=== PATIENT | female | born 1945 | race Caucasian/White ===

== ENCOUNTER 2022-07-11 09:49 | Outpatient (CLI) | payer MEDICARE, OTHER, SELFPAY ==
--- NOTE | 2022-07-11 10:15 | CRLHL7_ITS ---
For Patients: As a result of the Century Cures Act, medical imaging exams and procedure reports are released immediately into your electronic medical record. You may view this report before your referring provider. If you have questions, please contact your health care provider. Indication: Right hip pain Comparison: None. Procedure : Informed consent was obtained. The site was marked. Time-out was performed. The skin of the right hip was cleansed with ChloraPrep. A sterile drape was placed. 8 cc of 1 percent lidocaine was administered for superficial anesthesia. Subsequently a 22 gauge spinal needle was introduced into the right hip joint under intermittent fluoroscopic guidance. Injection of 7 cc 1 percent lidocaine and 2 cc Depo-Medrol 40 milligram/cc then performed. The needle was removed and hemostasis achieved with direct pressure. A dressing was placed. The patient tolerated the procedure well without immediate complication. Total fluoroscopy time 18 seconds. Impression: Successful fluoroscopically guided right hip injection with 80 milligrams of Depo-Medrol. Dictated by Javier Bass MD @ 07/11/2022 11:19:24 AM (Electronically Signed)
== END 2022-07-11 09:50 | disposition home or self-care (01) ==
PROVIDERS: PCP Family Medicine; Visit Provider Orthopaedic Surgery Sports Medicine
DX: M16.11 Unilateral primary osteoarthritis, right hip (principal); M25.551 Pain in right hip
CPT/HCPCS: 20610; 77002; J1030; Q9966

== ENCOUNTER 2022-10-25 09:04 | Outpatient (CLI) | payer MEDICARE, OTHER, SELFPAY | END 2022-10-25 09:05 | disposition home or self-care (01) | PROVIDERS: PCP Family Medicine; Visit Provider Orthopaedic Surgery Sports Medicine | DX: Z01.818 Encounter for other preprocedural examination (principal) | CPT/HCPCS: 36415; 86850; 86900; 86901 ==

== ENCOUNTER 2022-10-27 07:00 | Day surgery (SDC) | payer MEDICARE, OTHER, SELFPAY ==
[2022-10-27] VITALS (49 sets, daily range): BP systolic 72–145; BP diastolic 49–90; PULSE 49–80; RESP 11–16; TEMP 36–37; O2SAT 82–100; BMI 25.2
--- NOTE | 2022-10-27 07:44 | CRLHL7_ITS ---
For Patients: As a result of the Cures Act, medical imaging exams and procedure reports are released immediately into your electronic medical record. You may view this report before your referring provider. If you have questions, please contact your health care provider. Indication: POST OP RIGHT VÍCTOR Technique: AP hip centered pelvis and lateral view right hip Findings/Impression: Hardware from a right total hip arthroplasty is in satisfactory position. Bone alignment is normal. No sign of acute fracture. Postop changes are within normal limits. Dictated by Javier Bass MD @ 10/27/2022 11:15:11 AM (Electronically Signed)
[2022-10-27] MEDS: LACTATED RINGERS 1000 ML 1,000 ML 100 ML IV ×2 (07:50→09:39)
[2022-10-27] MEDS: SODIUM CHLORIDE 0.9 % (FLUSH) 10 ML SYRINGE IVF (07:50)
[2022-10-27] MEDS: ACETAMINOPHEN 500 MG TABLET 1000 MG PO ×3 (07:50→22:23)
[2022-10-27] MEDS: CELECOXIB 200 MG CAPSULE PO ×2 (07:50→20:38)
[2022-10-27] MEDS: OXYCODONE (CR) 10 MG TAB.ER.12H PO (07:50)
[2022-10-27] MEDS: fentaNYL 100 MCG/2 ML inj IVP (08:22)
[2022-10-27] MEDS: MIDAZOLAM HCL 1 MG/ML inj IVP (08:22)
--- NOTE | 2022-10-27 08:29 | SUR.PREOP ---
TIME?OUT:?08 PT/RN/MDA?VERIFICATION?OF?SURGICAL?SITE,?PROCEDURE,?AND?CONSENT OBTAINED?PRIOR?TO?INVASIVE?PROCEDURE.
--- NOTE | 2022-10-27 08:30 | CRLHL7_ITS ---
For Patients: As a result of the Cures Act, medical imaging exams and procedure reports are released immediately into your electronic medical record. You may view this report before your referring provider. If you have questions, please contact your health care provider. Indication: Hip replacement surgery Technique: AP hip fluoroscopic image. Fluoroscopy time 27.5 seconds. Findings/Impression: Hardware from a right total hip arthroplasty is in satisfactory position. Dictated by Javier Bass MD @ 10/27/2022 10:49:44 AM (Electronically Signed)
[2022-10-27] MEDS: CEFAZOLIN 2 GM in 0.9 % SODIUM CHLORIDE Mini-bag 100 ML IVPB (09:00)
--- NOTE | 2022-10-27 09:49 | P.ORPRC_ITS ---
Procedure Note Date of procedure: 10/27/22 Procedure: PREOPERATIVE DIAGNOSIS: 1. Right hip osteoarthritis, severe, primary POSTOPERATIVE DIAGNOSIS: 1. Right hip osteoarthritis, severe, primary PROCEDURE: 1. Right total hip arthroplasty-anterior approach 2. 79450 - intraoperative fluoroscopy up to 1 hour. SURGEON: Spencer Piper MD. BOLTING MACHINE OPERATOR: Yasir Forte PA-C; PREET Burgess - Of note, a skilled payroll and benefits assistant was critical for this case to aid in patient positioning, tissue retraction, limb manipulation/positioning, and closure. ANESTHESIA: Spinal anesthetic EBL: 300 mL IMPLANTS: DePuy J&J uncemented total hip [place] cup size 52, hole eliminator, +4 neutral liner Actis stem, standard offset, size 6 +5 mm ceramic 36 mm head COMPLICATIONS: None evident INDICATIONS: The patient is a pleasant 77-year-old female who has experienced severe right hip pain and difficulty bearing weight. Workup included x-rays which revealed severe osteoarthrosis in the hip. Given the deformity, the dysfunction, and the pain, as well as the failure of nonoperative management, recommendation was made for surgery. FINDINGS: Full-thickness chondral loss throughout the femoral head. Femoral head/neck junction osteophytes. Large effusion. Significant synovitis. DESCRIPTION OF PROCEDURE: Following a thorough discussion of risks, benefits, and alternatives consent was obtained and the right hip was marked. The patient was brought to the operating room and placed supine on the operating table. Induction of anesthesia was undertaken. 2 g IV Ancef and 1 g tranexamic acid was administered within 1 hr of incision preoperatively. Proper time-out was performed identifying proper patient, site, procedure. The operative extremity was prepped and draped in the appropriate sterile fashion using ChloraPrep after the patient was positioned on the [place] table with head in neutral alignment and all bony prominences well padded. C-arm fluoroscopic imaging was utilized to confirm proper pelvis rotation and position, and to get true AP films of both the contralateral left, and the affected right hip. This is for comparison. A longitudinal incision was made starting approximately 1 cm distal to the ASIS, and 3-4 cm lateral. The incision was extended distally aiming toward the late ral border the patella. Sharp incision through skin and bovie cautery through the subcutaneous tissue allowed identification of the TFL fascia. This was sharply divided, and the fascia bluntly released from the muscle fibers as we dissected medial. Upon coming to the medial border, we were able to retract the TFL laterally, and penetrated the deeper fascia and identify the crossing circumflex vessels. These were ligated/cauterized. The rectus was elevated from the capsule, and retractors placed laterally and medially along the femoral neck to help with visualization of the capsule. We then performed an inverted T capsulotomy. The capsule was tagged for later repair. Retractors were placed inside the capsule. The femoral neck was visualized after releasing medially down to the lesser trochanter, along the saddle laterally, and up onto the acetabulum. The femoral neck cut was made in line with our preoperative templating. The head was removed in a single piece, and sized. We turned our attention to acetabular preparation. Initially, the labrum was resected from around the perimeter, the pulvinar was excised, allowing us to visualize the false wall. We started the reaming with a 43 mm reamer. This was medialized down to the true wall. We then enlarged our reamers sequentially up to one size less than the selected cup size. We trialed at the same size and found it to have an excellent fit. The selected cup was then opened, inserted, and impacted in line with the goal of 40? of abduction, and 20-25? of anteversion. This was confirmed on C-arm fluoroscopic imaging to be in the appropriate/goal position. Once the cup was placed we placed a hole eliminator and a liner consistent with preop planning. Attention was turned to the femoral preparation. The limb was extended, externally rotated, and adducted. The posteromedial capsule was released, as retractors were placed allowing excellent access to the proximal femur. Initially a box car checker was followed by canal finder followed by various broaches. We broached sequentially up to the size noted above, found it to have excellent rotational control, and trialing various heads and necks, revealed that appropriate neck offset, and the above noted head size provided the greatest stability, and scientologist of length, and offset. C-arm fluoroscopic imaging confirmed position of the stem, as well as leg lengths, which were compared with the pre procedure all fluoroscopic images. Trial implants were removed, the real femoral stem inserted, as was the appropriate head. After reducing, the leg was placed through range of motion and stability was confirmed anterior, posterior, and lateral. A 3 min Betadine soak was then performed, and thorough irrigation with normal saline followed. Closure of the capsule was performed with #1 PDS. Bleeding was confirmed to be controlled at this stage, and the TFL fascia was closed with #0 strata fix. Subcutaneous, and subcuticular closure was performed with 2-0 Vicryl and 4-0 Monocryl, respectively. Dressings were applied, and the patient was awoken from anesthesia and transferred the PACU in stable condition. A skilled payroll and benefits assistant was critical for this case to aid in patient positioning, tissue retraction, acetabular and proximal femoral exposure, limb manipulation/positioning, dislocation/relocation, patient safety, and closure. PLAN: 1. Weight bear as tolerated operative extremity. 2. 23 hr perioperative antibiotics. 3. Ice. 4. PT/OT consults for ambulation assistance/mobility education. 5. Social work consult for discharge planning. 6. DVT prophylaxis with at SCDs, Emery Hose, and Xarelto x5 days followed by aspirin for a total of 1 month..
--- NOTE | 2022-10-27 10:33 | W.ANESCHARGE ---
Anesthesia Charges Start Date/Time Anesthesia Start Date: 10/27/22 Anesthesia Start Time: 08:32 Stop Date/Time Anesthesia Stop Date: 10/27/22 Anesthesia Stop Time: 10:25 Summary Emergency: No Extremes of Age: Over 70-CPT 36160
[2022-10-27] MEDS: LACTATED RINGERS 1000 ML 1,000 ML 75 ML IV (11:24)
--- NOTE | 2022-10-27 11:43 | W.ANESCHARGE ---
Anesthesia Charges Start Date/Time Anesthesia Start Date: 10/27/22 Anesthesia Start Time: 08:32 Stop Date/Time Anesthesia Stop Date: 10/27/22 Anesthesia Stop Time: 10:25 Summary Emergency: No Extremes of Age: Over 69-CPT 23363
--- NOTE | 2022-10-27 11:45 | W.PM.NB ---
Nerve Block Nerve Block Time Seen by Provider: 08:28 Date Seen: 10/27/22 Type of block requested by surgeon for post-operative analgesia: FLOYD/LFCN Side: right Time out performed: Yes Verification of patient name: Yes Verification of date of : Yes Site marking: site marked Name of person performing procedure: Shoaib Continuous monitoring Was continuous monitoring of O2 sat, B/P, campus monitor, recorded every 15 minutes?: Yes Procedure Checklist: sterile prep, needles and gloves Ultrasound guided. Images saved: Yes Medications given in 5ml increments after negative aspiration: Ropivicaine %: 0.5 mL: 30 Needle gauge: 20 Decadron (mg): 10 Precedex (mcg): 25 Patient tolerated procedure well: Yes Additional comments: Needle noted below psoas tendon needle noted adjacent to LFCN Block Charges Block Charge (with Pro Fee): Other Periph Nerve Block Use of Ultrasound Machine for Block: Yes- US Guidance/pain block
--- NOTE | 2022-10-27 12:02 | PC.NURSE ---
Patient returned from OR at 11am. Complained of bilateral jaw pain. Report was given that patient had a spinal and not general anesthesia. Patient started to complain of left hand tinglings at 1140. EKG was obtained and MD notified. Stat troponin is being drawn.
[2022-10-27 12:38] LABS: Troponin I* < 0.01 ng/mL (0.01-0.04)
--- NOTE | 2022-10-27 12:43 | P.IMCN_ITS ---
Date of Consult Consult date: 10/27/22 Primary Care Provider: Ольга Gamble, Consult Narrative Reason for consult: Medical management of comorbidities Narrative: Georgette Kaminski is a 77 year old female who presented to the hospital today for an elective right VÍCTOR. There were no surgical or anesthetic complications noted during procedure. Postoperatively, patient return to the floor and had some intermittent neck pain and left hand numbness. She had no chest pain or difficulty breathing. Symptoms resolved spontaneously. Immediately obtained troponin and EKG. Troponin within normal limits, EKG exhibits low voltage QRS, sinus bradycardia, left anterior fascicular block. 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 Known normal cardiac structure and function per TTE and cardiac MRI, according to outside records. Patient's H&P reviewed, PCP is Dr. Gamble at [facility]. Past medical history significant for: SVT, PVCs, essential hypertension, emphysema, anxiety, seasonal allergies, history of lumbar fusion. 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 She lives alone. Nonsmoker (quit smoking in 1972), no alcohol use. States that daughter Daphnie Spaers would be medical decision maker if needed. Review of Systems Status of ROS: Reports: 10 or more systems reviewed and unremarkable except as noted in History and below [facility] Medical History (Updated 10/27/22 @ 13:41 by Rosaura Harper MD) Arthritis Arthritis of carpometacarpal (CMC) joint of left thumb Back injury Bursitis Colitis Emphysema lung Gastritis Gastroenteritis and colitis, viral Heart palpitations Hypertension IBS (irritable bowel syndrome) Left carpal navicular fracture Panlobular emphysema Unstable angina Surgical History (Updated 10/27/22 @ 13:40 by Rosaura Harper MD) History of back surgery History of cardiac radiofrequency ablation (~2009) History of colon resection History of total left hip replacement (03/10/07) S/P right rotator cuff repair (01/02/10) Family History (Updated 10/14/22 @ 10:45 by Ashley Moore RN) Mother Asthma CHF (congestive heart failure) Brother Asthma Father Myocardial infarction Sister Colitis Social History (Updated 06/10/22 @ 14:04 by Albina Hamm ([facility]), [facility]) Smoking Status: Former smoker What tobacco products do you use: cigarettes Smoking quit date/years: >15 years ago Do you use any of these nicotine containing products: None Second hand tobacco smoke exposure: No How often do you have a drink containing alcohol: never AUDIT-C Alcohol total score: 0 Non-prescribed substance use: denies use Caffeine: No service: No Meds Home Medications and Allergies Home Medications Medication Instructions Recorded Confirmed Type albuterol sulfate 90 mcg/actuation 1 puff inhalation QID PRN 06/10/22 10/27/22 History aerosol inhaler hydrochlorothiazide 25 mg tablet 25 mg PO DAILY 06/10/22 10/27/22 History ipratropium 0.5 mg-albuterol 3 mg 3 ml inhalation QID PRN 06/10/22 10/27/22 History (2.5 mg base)/3 mL nebulization soln lorazepam 0.5 mg tablet 0.5 mg PO Q6H PRN 06/10/22 10/27/22 History metoprolol succinate 50 mg 50 mg PO DAILY 06/10/22 10/27/22 History tablet,extended release 24 hr montelukast 10 mg tablet 10 mg PO HS 06/10/22 10/27/22 History acetaminophen 500 mg tablet 500 - 1,000 mg PO TID PRN 10/23/22 10/27/22 History fluticasone 250 mcg-salmeterol 50 1 inh inhalation BID 10/23/22 10/27/22 History mcg/dose blistr powdr for inhalation (Advair Diskus) loperamide 2 mg capsule (Imodium 2 mg PO Q6H PRN 10/23/22 10/27/22 History A-D) Allergies Allergy/AdvReac Type Severity Reaction Status Date / Time fluoxetine [From Prozac] Allergy Unknown Verified 10/27/22 07:25 codeine AdvReac Nausea Verified 10/27/22 07:25 Exam Narrative: Exam Narrative: GEN: Alert and oriented, laying comfortably in bed. When I see patient she has no further headache, no further neck pain, no left sided paresthesia HEENT: EOMIs bilaterally, no scleral icterus CV: RRR, No concerning murmurs, rubs, or gallops R: LCTA bilaterally without concerning wheezing, rales, or rhonchi Skin: No concerning skin lesions or rashes on exposed skin Neuro: Nonfocal, no resting tremor, normal and symmetric sensation of upper extremities Psych: Appropriate Const: Vital Signs, click to edit/add: Vital Signs - 24 hr 10/27/22 07:39 10/27/22 08:15 10/27/22 08:20 Temperature 98.0 F Pulse Rate 61 62 58 L Respiratory Rate 16 16 16 Blood Pressure 145/89 H 123/90 H 123/81 Pulse Oximetry 94 97 97 Oxygen Delivery Me thod Room Air Nasal Cannula Nasal Cannula Oxygen Flow Rate 2 2 10/27/22 08:25 10/27/22 10:20 10/27/22 10:25 Temperature 97.1 F L Pulse Rate 59 L 51 L 53 L Respiratory Rate 16 11 L 12 Blood Pressure 121/75 91/61 83/49 L Pulse Oximetry 98 99 100 Oxygen Delivery Me thod Nasal Cannula OxyMask Oxygen Flow Rate 2 6 10/27/22 10:30 10/27/22 10:35 10/27/22 10:40 Temperature Pulse Rate 51 L 53 L 51 L Respiratory Rate 16 16 12 Blood Pressure 81/63 L 72/54 L 94/64 Pulse Oximetry 98 94 93 Oxygen Delivery Me thod Room Air Oxygen Flow Rate 10/27/22 10:45 10/27/22 10:50 10/27/22 11:04 Temperature 97.1 F L 96.8 F L Pulse Rate 52 L 50 L 51 L Respiratory Rate 12 12 16 Blood Pressure 95/67 102/62 Pulse Oximetry 94 94 93 Oxygen Delivery Me thod Oxygen Flow Rate 10/27/22 11:05 10/27/22 11:08 10/27/22 11:12 Temperature 96.8 F L Pulse Rate 52 L 56 L 52 L Respiratory Rate 16 Blood Pressure 82/50 L 86/53 L 113/69 Pulse Oximetry 93 82 L 98 Oxygen Delivery Me thod Oxygen Flow Rate 10/27/22 11:15 10/27/22 11:17 10/27/22 11:30 Temperature Pulse Rate 52 L 53 L 53 L Respiratory Rate Blood Pressure 105/64 Pulse Oximetry 93 92 93 Oxygen Delivery Me thod Oxygen Flow Rate 10/27/22 11:32 10/27/22 11:45 10/27/22 11:47 Temperature 98.6 F Pulse Rate 52 L 53 L 56 L Respiratory Rate 16 Blood Pressure 101/74 123/72 Pulse Oximetry 92 91 89 Oxygen Delivery Me thod Oxygen Flow Rate 10/27/22 12:00 10/27/22 12:02 Temperature Pulse Rate 55 L 51 L Respiratory Rate Blood Pressure 125/67 Pulse Oximetry 94 96 Oxygen Delivery Me thod Oxygen Flow Rate Labs Labs: Cardiac Enzymes 10/27/22 Range/Units 12:00 Troponin I < 0.01 L (0.01-0.04) ng/mL Assessment and Plan Assessment and plan (1) S/P hip replacement: Problem comment: - RIGHTDr. Piper 10/27/22 Status: Acute (2) Anxiety: Problem comment: - mild, well managed as an outpatient Status: Acute (3) Panlobular emphysema: Problem comment: - on Advair as an outpatient Status: Acute (4) Hypertension: Problem comment: - well controlled on HCTZ and Metoprolol Status: Acute (5) Cardiac arrhythmia: Problem comment: - history of SVT, post ablation remotely - known history of PVCs - on Metoprolol Status: Acute Plan - follow on telemetry given history - pain management and prophylaxis per Orthopedic Surgery - anticipate routine postoperative course
[2022-10-27] MEDS: CEFAZOLIN 1 GM in 0.9 % SODIUM CHLORIDE Mini-bag 100 ML IVPB ×2 (13:08→22:23)
[2022-10-27] MEDS: ONDANSETRON 2 MG/ML inj 4 MG IVP ×2 (13:16→17:50)
[2022-10-27] MEDS: METOCLOPRAMIDE HCL 5 MG/ML INJ 10 MG IVP (15:01)
--- NOTE | 2022-10-27 15:56 | PC.NURSE ---
End of shift note: Patient is a post op today of Right Total Hip Arthroplasty. PIV is intact and LR is running at 75ml/hr. Patient has denied pain since coming back. Spinal has worn off and patient has been able to get up to chair with PT. Attempted to void without success. Has had a lot of nausea and has vomited X3 since coming back from OR. Zofran and Reglan have been given. Aromatherapy patch has been applied. Patient appears very anxious about the nausea and vomiting. Reassured her it was likely from the medications from surgery. Patient was worried she would be contagious when she goes to her sisters. Incision is clean dry and intact. Good pulses and cap refill. Has feeling in both legs but her butt is somewhat numb. TEDs and Plexipulses are on. BP was initially low when she returned from PACU. Put in Trendelenburg position and this was helpful. BP has normalized. Patient did experience jaw pain and tingling down her left arm when she came back from PACU. EKG and Troponin were complete and within normal limits. Tele was started X24 hours. Sinus bradycardia with occasional PVCs. Patient is alert and oriented but did ask several questions about nausea after being answered. Patient plans to DC to [facility] when ready.
[2022-10-27] MEDS: 0.9 % SODIUM CHLORIDE 1000 ml 1,000 ML 500 ML IV (20:00)
[2022-10-27] MEDS: SENNOSIDES 1 TAB TABLET 2 TAB PO (20:38)
[2022-10-27] MEDS: 0.9 % SODIUM CHLORIDE 500 ML 500 ML 250 ML IV (23:29)
--- NOTE | 2022-10-27 23:32 | PC.NURSE ---
End of Shift: Patient pleasant and cooperative. Afebrile. Dressing to right hip C/D/I. CMS intact. Rating pain up to 7/10 with activity but denies need for PRN pain medication. Up to chair and bathroom with 1 assist, walker and gait belt. C/o nausea at the start of the shift and PRN Zofran given x1. Able to tolerate soup and toast by the end of the shift. No emesis. BP decreased to 85/56, MD updated and 1L NS bolus given. BP on recheck 96/57 and 94/52, MD updated and order for additional 500 mL bolus. Patient denies any lightheadedness or dizziness.
[2022-10-28 03:00] VITALS: BP 114/76; PULSE 77; RESP 16; TEMP 37; O2SAT 90
[2022-10-28] MEDS: ACETAMINOPHEN 500 MG TABLET 1000 MG PO (03:59)
[2022-10-28] MEDS: LACTATED RINGERS 1000 ML 1,000 ML 75 ML IV (03:59)
[2022-10-28 06:24] LABS: Hematocrit 28.7 % (33.0-51.0); Hemoglobin* 9.9 gm/dL (12.0-16.0); Immature Granulocytes Abs Auto 0.11 K/uL (0.00-0.30); Immature Granulocytes Pct Auto 1.3 %; Lymphocytes Percent Auto 8.4 % (20-44); Mean Corpuscular HGB Conc 35 gm/dL (32-36); Mean Corpuscular Hemoglobin 31 pg (26-34); Mean Corpuscular Volume 90 fL (80-100); Monocytes Percent Auto 6.6 % (0.0-11.0); Neutrophils Percent Auto 83.7 % (42.0-72.0); Platelet Count* 200 K/uL (140-440); RDW Coefficient of Variation % 12.6 % (11.5-15.5); Red Blood Count 3.18 m/uL (4.00-5.20); White Blood Count* 8.59 K/uL (4.50-11.00)
[2022-10-28] MEDS: CEFAZOLIN 1 GM in 0.9 % SODIUM CHLORIDE Mini-bag 100 ML IVPB (06:26)
[2022-10-28 06:34] LABS: Slide Review Reflex No
[2022-10-28 06:37] LABS: Potassium* 3.8 mmol/L (3.6-5.1); Sodium* 136 mmol/L (135-149)
[2022-10-28 06:40] LABS: Blood Urea Nitrogen* 25 mg/dL (7-30); Creatinine* 0.9 mg/dL (0.5-1.5); Est. Creatinine Clearance* 45.09; Estimated Glomerular Filt Rate 65 ml/min
[2022-10-28 07:00] VITALS: BP 95/54; PULSE 58; PULSE 60; RESP 16; TEMP 37.1; O2SAT 96
--- NOTE | 2022-10-28 07:03 | PC.NURSE ---
Pt alert and oriented x3. Afebrile. Pt reports 4/10 pain in right leg, scheduled Tylenol given. Pt denies chest pain, SOB, and N/V. Dressing on right hip?is CDI. Pt is up with A1 with gait belt and walker to bathroom.?Pt is tolerating regular diet. ?
[2022-10-28] MEDS: SENNOSIDES 1 TAB TABLET 2 TAB PO (08:33)
[2022-10-28] MEDS: CELECOXIB 200 MG CAPSULE PO (08:33)
[2022-10-28] MEDS: RIVAROXABAN 10 MG TABLET PO (08:33)
--- NOTE | 2022-10-28 10:20 | PC.NURSE ---
Discharge note: Pt. alert and oriented x4, up to chair for breakfast, denies N/V/SOB/Pain. Pt. tolerating reg. diet. Dressing to right hip C/D/I. IV to right wrist removed intact. Pt. belonging sheet signed, discharge instructions given and pt. verbalized understanding of instructions. Pt. discharged to home via wheelchair accompanied by sister, at 1010.
--- NOTE | 2022-10-28 12:01 | P.ORPN_ITS ---
Subjective Subjective Date Seen: 10/28/22 Principal diagnosis: Status postop day 1, right total hip arthroplasty - anterior approach Interval history: Patient reports doing well. No acute events over night. Pain managed with scheduled /PRN medications and ice. DVT prophylaxis rivaroxaban, bilateral knee high Emery stockings, and SCDs. Denies fevers, chills, aches, N/V, CP, SOB/MCCAIN, tachycardia, or lightheadedness. She plans to stay with her sister at [facility], [place]. Ortho Exam Narrative Exam Narrative: -Patient appears comfortable in liner; no apparent acute distress. Working with physical therapy. -Alert and oriented times 3 -Operative hip swollen; soft tissues supple; no obvious erythema. Warmth appropriate -Surgical dressing clean, dry, intact; no obvious drainage, no erythematous streaking peripheral to the bandage -Bilateral calves soft and supple; no significant swelling, edema, tenderness, erythema, discoloration, warmth, or palpable cords -2+ DP/PT pulses, intact dermatomes and myotomes distally (5/5 strength). No numbness about the lateral femoral cutaneous nerve distribution. Const Vital Signs, click to edit/add: Vital Signs - 24 hr 10/27/22 12:02 10/27/22 12:03 10/27/22 12:15 Temperature Pulse Rate 51 L 50 L 53 L Pulse Rate [Right Pulse Oximeter] Respiratory Rate Blood Pressure 125/67 Blood Pressure [Left Arm] Pulse Oximetry 96 92 90 Oxygen Delivery Method 10/27/22 12:30 10/27/22 12:32 10/27/22 12:45 Temperature 97.2 F L Pulse Rate 50 L 52 L 49 L Pulse Rate [Right Pulse Oximeter] Respiratory Rate 16 Blood Pressure 124/71 Blood Pressure [Left Arm] Pulse Oximetry 95 95 88 Oxygen Delivery Method 10/27/22 13:00 10/27/22 13:15 10/27/22 13:30 Temperature 97.0 F L Pulse Rate 54 L 80 54 L Pulse Rate [Right Pulse Oximeter] Respiratory Rate 16 Blood Pressure Blood Pressure [Left Arm] Pulse Oximetry 95 96 96 Oxygen Delivery Method 10/27/22 13:38 10/27/22 14:02 10/27/22 14:17 Temperature Pulse Rate 53 L 52 L Pulse Rate [Right Pulse Oximeter] Respiratory Rate Blood Pressure 128/83 105/90 H Blood Pressure [Left Arm] Pulse Oximetry 96 91 Oxygen Delivery Method 10/27/22 14:30 10/27/22 14:45 10/27/22 15:05 Temperature 97.0 F L Pulse Rate 55 L 59 L 61 Pulse Rate [Right Pulse Oximeter] Respiratory Rate 16 Blood Pressure Blood Pressure [Left Arm] Pulse Oximetry 92 96 95 Oxygen Delivery Method 10/27/22 15:23 10/27/22 15:12 10/27/22 15:15 Temperature 97.0 F L Pulse Rate 57 L 58 L 54 L Pulse Rate [Right Pulse Oximeter] Respiratory Rate 16 Blood Pressure 121/61 Blood Pressure [Left Arm] Pulse Oximetry 93 92 Oxygen Delivery Method 10/27/22 15:30 10/27/22 15:45 10/27/22 16:38 Temperature 97.2 F L Pulse Rate 49 L 50 L Pulse Rate [Right Pulse Oximeter] 53 L Respiratory Rate 16 Blood Pressure Blood Pressure [Left Arm] 99/56 L Pulse Oximetry 92 93 93 Oxygen Delivery Method Room Air 10/27/22 17:00 10/27/22 19:00 10/27/22 21:35 Temperature 97.9 F 98.0 F Pulse Rate Pulse Rate [Right Pulse Oximeter] 66 69 Respiratory Rate 16 16 Blood Pressure Blood Pressure [Left Arm] 115/66 85/56 L 96/57 L Pulse Oximetry 94 94 Oxygen Delivery Method Room Air Room Air 10/27/22 22:30 10/27/22 12:05 10/27/22 23:00 Temperature 98.2 F Pulse Rate 62 Pulse Rate [Right Pulse Oximeter] 59 L 61 Respiratory Rate 14 Blood Pressure Blood Pressure [Left Arm] 94/52 L 102/49 L Pulse Oximetry 92 Oxygen Delivery Method Room Air 10/28/22 03:00 10/28/22 07:00 10/28/22 07:00 Temperature 98.6 F Pulse Rate 60 Pulse Rate [Right Pulse Oximeter] 77 58 L Respiratory Rate 16 16 Blood Pressure Blood Pressure [Left Arm] 114/76 Pulse Oximetry 90 Oxygen Delivery Method Room Air 10/28/22 07:00 Temperature 98.8 F Pulse Rate Pulse Rate [Right Pulse Oximeter] 58 L Respiratory Rate 16 Blood Pressure Blood Pressure [Left Arm] 95/54 L Pulse Oximetry 96 Oxygen Delivery Method Room Air Assessment and Plan Assessment and plan (1) S/P hip replacement: Problem details: - RIGHT, Dr. Piper 10/27/22 Status: Inactive (2) Anxiety: Problem details: - mild, well managed as an outpatient Status: Acute (3) Panlobular emphysema: Problem details: - on Advair as an outpatient Status: Acute (4) Hypertension: Problem details: - well controlled on HCTZ and Metoprolol Status: Acute (5) Cardiac arrhythmia: Problem details: - history of SVT, post ablation remotely - known history of PVCs - on Metoprolol Status: Acute Plan - Complete 23 hour perioperative antibiotics. - PT/OT consult for education and assistance. - Social work consult for discharge planning - Prescribed analgesics as needed - DVT prophylaxis: Rivaroxaban, bilateral knee high Emery Hose stockings and SCDs - Anticipation is for discharge to home with sister today 10/28/2022 if the patient remains medically stable, pain is controlled, and they are safe with mobilization.
--- NOTE | 2022-10-28 12:03 | P.DS_ITS ---
DS: Providers Provider Date Seen: 10/28/22 Date of admission: Med/Surg Recovery 10/27/2022 Primary care physician: Ольга Gamble DO Consults: 10/27/22 11:01 Consult to Occupational Therapy [CONS] Routine Comment: Reason(s) for OT Consult:: ADLs Prior to Discharge Any Restrictions?:: No Restrictions Comment: Consult to Physical Therapy [CONS] Routine Comment: Ambulate in the saba today Reason(s) for PT Consult:: Evaluate and Treat Any Restrictions?:: No Restrictions Comment: Nursing Activity Consult to Physician [CONS] Routine Comment: Consulting Provider: Hospitalists Has provider been notified: No Consult to Sales Service Professional [CONS] Routine Comment: Reason for Consult:: Discharge Planning Needs Attending Physician on discharge: Spencer Piper MD Date of Discharge: 10/28/22 DS: Diagnosis Discharge Diagnosis (1) Status post total replacement of right hip: Status: Acute Problem details: VÍCTOR-AA (10/27/2022, Dr. Piper) DS: Summary Hospital Course Hospital Course: The patient has a history of right hip osteoarthritis, primary, severe. After appropriate preoperative evaluation, the patient underwent right total hip arthroplasty. Postoperatively given anticoagulation for deep vein thrombosis prophylaxis. They progressed to PT/OT and were felt ready and prepared for discharge to home with appropriate pain medication and anticoagulation medications. Status at Discharge Functional status at discharge: uses cane/walker Overall status at discharge: patient is progressing back to baseline Time Spent with Patient Time attestation: Total time spent providing and/or coordinating discharge services: Time spent: Less than 30 minutes Exam Const: Vital Signs, click to edit/add: Vital Signs - 24 hr 10/27/22 12:15 10/27/22 12:30 10/27/22 12:32 Temperature 97.2 F L Pulse Rate 53 L 50 L 52 L Pulse Rate [Right Pulse Oximeter] Respiratory Rate 16 Blood Pressure 124/71 Blood Pressure [Le ft Arm] Pulse Oximetry 90 95 95 Oxygen Delivery Me thod 10/27/22 12:45 10/27/22 13:00 10/27/22 13:15 Temperature 97.0 F L Pulse Rate 49 L 54 L 80 Pulse Rate [Right Pulse Oximeter] Respiratory Rate 16 Blood Pressure Blood Pressure [Le ft Arm] Pulse Oximetry 88 95 96 Oxygen Delivery Me thod 10/27/22 13:30 10/27/22 13:38 10/27/22 14:02 Temperature Pulse Rate 54 L 53 L Pulse Rate [Right Pulse Oximeter] Respiratory Rate Blood Pressure 128/83 105/90 H Blood Pressure [Le ft Arm] Pulse Oximetry 96 96 Oxygen Delivery Me od 10/27/22 14:17 10/27/22 14:30 10/27/22 14:45 Temperature Pulse Rate 52 L 55 L 59 L Pulse Rate [Right Pulse Oximeter] Respiratory Rate Blood Pressure Blood Pressure [Le ft Arm] Pulse Oximetry 91 92 96 [facility] 10/27[facility] 15:05 10/27/22 15:23 10/27/22 15:12 Temperature 97.0 F L 97.0 F L Pulse Rate 61 57 L 58 L Pulse Rate [Right Pulse Oximeter] Respiratory Rate 16 16 Blood Pressure 121/61 Blood Pressure [Le ft Arm] Pulse Oximetry 95 93 [facility] 10/27/22 15:15 10/27/22 15:30 10/27/22 15:45 Temperature Pulse Rate 54 L 49 L 50 L Pulse Rate [Right Pulse Oximeter] Respiratory Rate Blood Pressure Blood Pressure [Le ft Arm] Pulse Oximetry 92 92 93 [facility] 10/27/22 16:38 10/27/22 17:00 10/27/22 19:00 Temperature 97.2 F L 97.9 F 98.0 F Pulse Rate Pulse Rate [Right Pulse Oximeter] 53 L 66 69 Respiratory Rate 16 16 16 Blood Pressure Blood Pressure [Le ft Arm] 99/56 L 115/66 85/56 L Pulse Oximetry 93 94 94 Oxygen Delivery [facility] Room Air Room Air Room Air 10/27/22 21:35 10/27/22 22:30 10/27/22 12:05 Temperature 98.2 F Pulse Rate Pulse Rate [Right Pulse Oximeter] 59 L 61 Respiratory Rate 14 Blood Pressure Blood Pressure [Le ft Arm] 96/57 L 94/52 L 102/49 L Pulse Oximetry 92 [facility] 10/27/22 23:00 10/28/22 03:00 10/28/22 07:00 Temperature 98.6 F Pulse Rate 62 60 Pulse Rate [Right Pulse Oximeter] 77 Respiratory Rate 16 Blood Pressure Blood Pressure [Le ft Arm] 114/76 Pulse Oximetry 90 Oxygen Delivery Me thod Room Air 10/28/22 07:00 10/28/22 07:00 Temperature 98.8 F Pulse Rate Pulse Rate [Right Pulse Oximeter] 58 L 58 L Respiratory Rate 16 16 Blood Pressure Blood Pressure [Le ft Arm] 95/54 L Pulse Oximetry 96 Oxygen Delivery Me thod Room Air DS: Data Data Completed and Pending Labs on day of discharge: Labs from last 24 hours 10/28/22 10/28/22 10/27/22 05:47 05:47 12:00 WBC 8.59 RBC 3.18 L Hgb 9.9 L Hct 28.7 L MCV 90 MCH 31 MCHC 35 RDW Coeff of Virgil 12.6 Plt Count 200 Neut % (Auto) 83.7 H Lymph % (Auto) 8.4 L Aiken % (Auto) 6.6 Eos % (Auto) 0.0 Baso % (Auto) 0.0 Neut # (Auto) 7.20 H Lymph # (Auto) 0.70 L Aiken # (Auto) 0.60 Eos # (Auto) 0.00 Baso # (Auto) 0.00 Sodium 136 Potassium 3.8 BUN 25 Creatinine 0.9 Estimated Creat Clear 45.09 Estimated GFR 65 Troponin I < 0.01 L Discharge Plan Discharge Disposition: Home, Self-Care Discharging Surgeon: Spencer Piper Follow-Up Appointment: 1 week PO with JUMA Prescriptions: New sennosides-docusate sodium [Senna-S] 8.6-50 mg tablet 1 - 4 tab-cap PO BID PRN (Reason: constipation) Qty: 60 0RF Rx Instructions: Hold medication if experiencing loose stools. aspirin 81 mg tablet,delayed release (DR/EC) 81 mg PO BID Qty: 50 0RF Rx Instructions: Medication to help prevent blood clots postoperatively; take TWICE daily. oxycodone 5 mg tablet 2.5 - 5 mg PO Q4-6H MDD 6 PRN (Reason: pain) Qty: 42 0RF Rx Instructions: Take as needed for postop pain: 2.5mg mild pain, 5mg moderate-severe pain; we an as tolerated. rivaroxaban 10 mg tablet 10 mg PO DAILY Qty: 4 0RF Rx Instructions: Medication for deep vein clot prevention post surgery. Complete this medication before starting Aspirin. Continued acetaminophen 500 mg tablet 500 - 1,000 mg PO TID PRN No Action hydrochlorothiazide 25 mg tablet 25 mg PO DAILY metoprolol succinate 50 mg tablet extended release 24 hr 50 mg PO DAILY montelukast 10 mg tablet 10 mg PO HS albuterol sulfate 90 mcg/actuation HFA aerosol inhaler 1 puff inhalation QID PRN ipratropium-albuterol 0.5 mg-3 mg(2.5 mg base)/3 mL solution for nebulization 3 ml inhalation QID PRN lorazepam 0.5 mg tablet 0.5 mg PO Q6H PRN fluticasone propion-salmeterol [Advair Diskus] 250-50 mcg/dose blister with device 1 inh inhalation BID loperamide [Imodium A-D] 2 mg capsule 2 mg PO Q6H PRN Activity Level: Activity as Tolerated, Weight Bearing as Tolerated, Use Cane and Use Walker Activity Detail: Wound: ?Do not remove original dressing; we will remove this at first postop visit in 1 week. Only remove dressing if integrity is in question. ?No immersing wound in water; showering okay; light scrub with your hand and body soap, rinse, dab dry ?Sutures are under the skin, will dissolve; allow surgical glue to come off naturally; do not scrub the wound or apply ointments/lotions ?Call our office with any redness that streaks, excessive drainage from the wound, or wound gapping. Ice/Elevate: ?Ice as needed for swelling and discomfort (cryocuff or ice pack); elevate frequently above the heart ARELY socks: ?Wear for 1 month, remove for 1 hour 3 times per day ?These are frustrating to take on/off, but are important for blood clot prevent ion for 1 month after surgery Blood Clot Prevention (DVT): ?Medication: Rivaroxaban, and transition to 81 mg aspirin by mouth twice daily (total one month of protection). Driving: ?Do not drive while taking narcotic pain medication ?Anticipate 4-6 weeks no driving if operative leg is driving leg Dental: ?No elective dental work for 6 months post-op. If there is an urgent/emergent dental need, contact our office for an antibiotic prescription. Smoking/Alcohol: ?Do not smoke; do no drink alcohol especially when taking postoperative oral narcotic medication Seek Care from you Primary Care Provider if you experience the following issues in the postoperative phase and beyond: ?Bacterial infections such as: pneumonia, bacterial skin infection (cellulitis), UTI, high fever, chills unrelated to the operative body part - call your primary care physician urgently for treatment in hopes to protect your health and the metal implant. Referrals: ?PT, OT per patient preference - evaluate treat total hip arthroplasty protocol (gait training, ROM, ADLs) Follow up: ?Ortho surgeon follow-up in 6 weeks; repeat radiographs AP pelvis, cross-table lateral operative hip ?PA-C visit in 1 week *If there are any acute concerns regarding your surgery, please call our orthopedic clinic ([phone]) Discharge Diet: Regular Patient Instructions: Aspirin (By mouth), Oxycodone, Rapid Release (By mouth), Rivaroxaban (By mouth), Senna (By mouth), Surgical Site Infections (DC), Anterior Hip Replacement (DC) Follow-up: Ольга Gamble DO [Primary Care Provider] - Afshan Carolina PA-C [Physician Senior Mobile Web Developer] - 11/05/22 11:00 am (At the [facility] Call if you have any questions) Discharge Orders: Discharge Order (Routine); Ordered 10/28/22 Ordered By: Yasir Forte
== END 2022-10-28 10:10 | disposition home or self-care (01) ==
LOC: OR 07:01 → MEDSURG 07:03
PROVIDERS: Family Medicine; PCP Family Medicine; Visit Provider Orthopaedic Surgery Sports Medicine
PROC: (CPT 27130; principal; 2022-10-27 08:30)
DX: M16.11 Unilateral primary osteoarthritis, right hip (principal); M25.551 Pain in right hip; F41.9 Anxiety disorder, unspecified; J43.1 Panlobular emphysema; I10 Essential (primary) hypertension; M54.2 Cervicalgia; R20.0 Anesthesia of skin; R00.1 Bradycardia, unspecified; I44.4 Left anterior fascicular block
CPT/HCPCS: 27130; 01214; 36415; 51798; 64450; 73501; 76942; 82565; 84132; 84295; 84484; 84520; 85025; 86850; 86900; 86901; 93005; 97110; 97116; 97161; 97165; 97535; 99100; A9270; C1776; J0690; J1100; J2250; J2370; J2405; J2704; J2765; J2795; J3010; J3490; J7030; J7120

== ENCOUNTER 2022-11-24 09:00 | Outpatient (RCR) | payer MEDICARE, OTHER, SELFPAY ==
--- NOTE | 2022-10-20 13:45 | PT.OPEX ---
PT [place] Outpatient Eval PT [facility] Outpatient Eval Start: 10/20/22 09:06 Freq: Status: Active Protocol: Document 10/20/22 09:49 ENM (Rec: 10/20/22 12:49 ENM [id number]) E-signed By Gabriela Artis DPT Physical Therapy Outpatient Evaluation Insurance Information Recert Due Date 01/12/23 Insurance Name Medicare B Medical Diagnosis unilateral primary osteoarthritis, right hip presence of unspecified artificial hip joint Treating Diagnosis right hip pain, impaired gait, decreased hip ROM Referring MD Piper Subjective Subjective Patient presents to PT for pre -operative appointment prior to right total hip replacement DOS 10/27/22 to be performed by . She had her left hip replaced 15+ years ago. The right hip has been bothersome for a year or so. She had a cortisone injection to the groin that has helped a lot but pain is still present . Walking and performing daily activities are painful. Sitting to standing had been getting more difficult. She will be staying with her sister after the surgery as she lives alone. For additional information as to home set up see pre-op flowsheet. PMHx: respiratory problems, arthritis Pain Comments 05/07 Date of Surgery (If applicable) 10/27/22 Current Work Status Retired Objective Other/Pertinent Objective ROM L knee WNL R knee WNL L hip flexion + for pain with limited range performing heel slides L hip able to perform VAN without help or pain. R hip discomfort and needing to use arms to perform VAN position , 25% limited strength: hip flexors L 4/5 R 4-/5 knee extensors 4/5 B gait/balance: Patient ambulating with decreased hip extension and decreased stance time/WB of RLE throughout gait cycle palpation/joint mobility: no tenderness to palpation along anterior or lateral right hip musculature other: good hamstring flexibility B Assessment Assessment/Impression Patient is a 77 year old female presenting for pre op visit prior to R VÍCTOR on . Patient has difficulty with sit to stands, walking and daily activities due to pain. They will have support from their sister after the surgery and will stay with her for the first couple of days. Patients goal is to be able to perform all her daily activities without pain after surgery. Upon assessment patient displays decreased hip ROM, decreased proximal hip strength and antalgic gait pattern. Hip flexion and VAN positioning are limited and painful. No significant tenderness to palpation of hip musculature or muscle tightness. Patient will be seen post operatively to reassess impairments that will be addressed with skilled care. Georgette would greatly benefit from skilled PT to progress strength, ROM and ambulation post operatively for return to PLOF. Primary Functional Limitations walking, daily activities, sitting to standing Plan of Care Rehabilitation Potential Good Physical Therapy Goals After pre-op visit: ? Patient will be independent with HEP ? Patient will verbalize knowledge of stair navigation and proper sequencing ? Patient will have knowledge on home adaptations and use of assistive devices post operatively ? Patient will have knowledge of edema management Coordination/Communication With Referral Source Treatment Plan/Direct Interventions Gait Training,Ice/Cold/ Vasopneumatic,Joint Mobilization,Manual Therapy, Neuromuscular Re-ed,Self-Care/ Home Management,Therapeutic Activities,Therapeutic Exercises Frequency/Duration 1x visit prior to surgery on . Patient scheduled to start outpatient PT s/p VÍCTOR on 11/03/22. Has HEP to start with pre-operatively. Post operative frequency 1x a week for 4-5 visits Patient Will Be Discharged From Therapy Completion of LTG(s), Independent w/HEP Evaluation Billing Untimed Code Treatment Minutes 25 Complexity Low Certification Information Initial Certification Date 10/20/22 Ending Certification Date 01/12/23 Provider Signature Shows Agreement With POC & Medical Necessity Physician Signature & Date Requested Please Sign/Date Here Physician Comment/Change : Physician NPI Number #
--- NOTE | 2022-11-03 10:59 | PT.OPDNX ---
PT [facility] Daily Note PT [facility] Daily Note Start: 10/20/22 09:06 Freq: Status: Active Protocol: Document 11/03/22 08:55 DAVIS (Rec: 11/03/22 10:47 DAVIS [id number]) E-signed By Ellen Sanchez PT OP Daily Progress Note Visit Information Note Type Re-Evaluation Visit Number 2 Insurance Information Recert Due Date 01/12/23 Insurance Name Medicare B Medical Diagnosis unilateral primary osteoarthritis, right hip presence of unspecified artificial hip joint Treating Diagnosis right hip pain, impaired gait, decreased hip ROM Referring MD Piper Subjective Subjective Patient presents to PT for post-operative re-eval following to right total hip replacement (DOS 10/27/22, Dr. Piper). She had quite a bit of swelling initially which has improved now. She's functioning as well as she thought she would. She's managing her pain just with Tylenol now. She's sleeping pretty well. She doesn't think she has any unusual complaints. She's using a leg offset lithographic press operator for bed mobility, has been able to get to and from the bathroom OK. Sit<>stands are slow and steady. She's a little shaky sometimes, mostly in the morning, but it passes quickly. She's back to her home (stayed w her sister) as of Thursday, where she has a single stair w/o rails to navigate. She's been doing her exercises 2-3x/day and tries not to stay sitting for too long at a time. PMHx: respiratory problems, arthritis Home Exercise Home Exercise Comments pre-op/post-op exercises that include AP, QS, HS, GS, heel slides, standing hip abduction Objective Other/Pertinent Objective ROM: R hip able to achieve extension to neutral, flexion to approximately 90 Gait: significant reliance on UEs on FWW, reciprocal pattern . Flexed at hips. Bed mobility: independent, sit >supine required use of UEs to assist R LE. Sit to stands: correct hand placement w FWW for all but 1 transfer (hands remained on FWW for sit), tends to offload R by leaning L Muscle activation: able to appropriately engage quads, HS , glutes for HEP and functional mobility Patient Instructed in Risks/Benefits Yes Therapeutic Exercise Therapeutic Exercise Minutes (minutes) 12 Therapeutic Exercise: To Restore Reviewed HEP, swelling Functional Status management, expectations for continued post-op progression. Quad sets Glute sets Ankle pumps: discussed performing while LE is elevated to assist w moving swelling out of ankle and lower leg HS set: pt had been performing incorrectly Heel slides 1x10: verbal and visual cues to fully extend hip/knee. Coming from full extension to about 20 degrees quite painful. Standing hip ab at counter: pt reports she hasn't been as consistent w this exercise. Significant offloading w UEs during stance on R. Therapeutic Activity Therapeutic Activity Minutes (minutes) 2 Therapeutic Activities Comments Reviewed hand placement for transfers w FWW through demonstration and verbal explanation. Gait & Stair Training Gait Training/Stairs Minutes (minutes) 9 Gait & Stair Training Comments Instructed in stair navigation w step-to pattern. Supervised practice x1 w B rails, x1 w R rail. Discussed options for grab bars, placing sturdy furniture nearby, etc. for UE support options on single stair at home. Verbal cues for upright posture during gait. Attempted to adjust FWW height, but it was at its highest setting. Treatment Minutes Untimed Code Treatment Minutes 24 Timed Code Treatment Minutes 23 Total Treatment Time 47 Billing Units Gait Training/Stairs Units 1 Therapeutic Exercise Units 1 Re-Evaluation Units 1 Assessment/Impression Assessment/Impression Patient is a 77 year old female presenting for post-op visit following R VÍCTOR on . Patient has no complaints about being able to get around her home independently; patient's primary concern at this time is R LE swelling, which has improved but is still bothersome. Today's session focused on re- evaluating the patient's ability to perform transfers, gait, and stair navigation, as well as reviewing HEP. Patient was able to achieve 90 degrees of R hip flexion today and was able to extend to neutral. PT answered pt's questions about swelling management, home setup, and post-operative progression. Georgette would greatly benefit from skilled PT to progress strength, ROM and ambulation post operatively for return to PLOF. Cosigned :Gabriela Galindo, DPT [id number] Plan of Care Physical Therapy Goals In 4-6 weeks: 1. Patient will be independent with home exercise program to promote independent management of symptoms. 2. Patient will be able to confidently demonstrate safe, independent technique for sit to stands, bed mobility, and stair navigation. 3. Patient will report being able to walk with upright posture for up to 15 minutes at a time without a significant increase in pain to demonstrate progress toward returning to her preferred activities. Daily Plan of Care Continue per POC Daily Plan of Care Comments [employer] Student Supervision Licensed PT Directed/Approved Treatment, Reviewed POC with Patient,Made Contact with Patient, Participated in Treatment Documentation Reviewed By Primary Care Nurse Yes Recertification Information Provider Signature Shows Agreement With POC & Medical Necessity
== END 2022-12-30 09:35 | disposition home or self-care (01) ==
PROVIDERS: PCP Family Medicine; Visit Provider Orthopaedic Surgery Sports Medicine
DX: M16.11 Unilateral primary osteoarthritis, right hip (principal); M25.551 Pain in right hip; Z96.649 Presence of unspecified artificial hip joint; Z51.89 Encounter for other specified aftercare
CPT/HCPCS: 97110; 97116; 97161; 97164

== ENCOUNTER 2024-07-15 09:36 | Outpatient (CLI) | payer MEDICARE, OTHER, SELFPAY ==
--- NOTE | 2024-07-15 11:01 | W.ANESCHARGE ---
Anesthesia Charges Start Date/Time Anesthesia Start Date: 07/15/24 Anesthesia Start Time: 10:29 Stop Date/Time Anesthesia Stop Date: 07/15/24 Anesthesia Stop Time: 10:59 Summary Extremes of Age - Over 70 or under 1: MANAGER INSTALLATION
== END 2024-07-15 09:37 | disposition home or self-care (01) ==
LOC: OP CLINIC 09:38
PROVIDERS: PCP Family Medicine; Visit Provider Internal Medicine Gastroenterology
DX: Z12.11 Encounter for screening for malignant neoplasm of colon (principal); D12.3 Benign neoplasm of transverse colon; K64.4 Residual hemorrhoidal skin tags; Z86.0101 Personal history of adenomatous and serrated colon polyps; Z98.0 Intestinal bypass and anastomosis status
CPT/HCPCS: 00811; 45385; 88305; 99100; J2704

== ENCOUNTER 2024-08-27 19:52 | Inpatient (IN) | payer MEDICARE, OTHER, SELFPAY ==
[2024-08-27] VITALS (17 sets, daily range): BP systolic 130–154; BP diastolic 82–118; PULSE 59–96; RESP 16–18; TEMP 37.5; O2SAT 90–96; BMI 25.8
--- NOTE | 2024-08-27 20:56 | CRLHL7_ITS ---
For Patients: As a result of the Century Cures Act, medical imaging exams and procedure reports are released immediately into your electronic medical record. You may view this report before your referring provider. If you have questions, please contact your health care provider. INDICATION: Trauma, fall. TECHNIQUE: Left wrist 3 views. COMPARISON: 11/29/2019. FINDINGS: Questionable irregularity of the scaphoid distal pole. Radiocarpal, STT, and 1st CMC joint degenerative changes. TFCC chondrocalcinosis. Mild soft tissue swelling. IMPRESSION: Questionable irregularity of the scaphoid distal pole, which may represent projectional artifact or nondisplaced fracture. Recommend correlation with point tenderness. Dictated by Issac Hope MD @ 08/27/2024 10:24:48 PM (Electronically Signed)
--- NOTE | 2024-08-27 20:56 | CRLHL7_ITS ---
For Patients: As a result of the Cures Act, medical imaging exams and procedure reports are released immediately into your electronic medical record. You may view this report before your referring provider. If you have questions, please contact your health care provider. INDICATION: Trauma, fall. TECHNIQUE: Right knee 2 views. COMPARISON: 04/21/2023. FINDINGS: Comminuted nondisplaced fracture of the patella. Moderate joint effusion. Joint alignment is maintained. Tricompartmental osteoarthrosis. Meniscal chondrocalcinosis. Soft tissue swelling. IMPRESSION: 1. Comminuted nondisplaced patellar fracture. 2. Moderate joint effusion. Dictated by Issac Hope MD @ 08/27/2024 10:21:35 PM (Electronically Signed)
--- NOTE | 2024-08-27 20:57 | ED.FALL ---
HPI - Fall General Chief Complaint: Fall/Minor Trauma Stated Complaint: L wrist pain after fall Time Seen by Provider: 08/27/24 20:18 History of Present Illness HPI Narrative: This 79-year-old female comes in for evaluation of injuries from a fall that occurred about 2 or 3 hours prior to arrival. She was getting into her car and misstepped on a curb nearby and fell onto her right knee and her left wrist. She also hit her left cheek on the ground. She did not have loss of consciousness. She was able to get up and ambulate. She got into her car and drove home and ambulated from her car into her home. She began to have worsening pain in her left wrist and right knee. She also has a superficial abrasion over left cheek with some mild swelling. She does not complain of headache or any neurologic deficits. She states that it has become more difficult to ambulate on her left leg because of knee pain and swelling. She is not on any anticoagulants. Related Data Home Medications ?Medication ?Instructions ?Recorded ?Confirmed albuterol sulfate 90 mcg/actuation 1 puff inhalation QID PRN 06/10/22 08/27/24 aerosol inhaler hydrochlorothiazide 25 mg tablet 25 mg PO DAILY 06/10/22 08/27/24 ipratropium 0.5 mg-albuterol 3 mg 3 ml inhalation QID PRN 06/10/22 08/27/24 (2.5 mg base)/3 mL nebulization soln lorazepam 0.5 mg tablet 0.5 mg PO Q6H PRN 06/10/22 08/27/24 metoprolol succinate 50 mg 50 mg PO DAILY 06/10/22 08/27/24 tablet,extended release 24 hr montelukast 10 mg tablet 10 mg PO HS 06/10/22 08/27/24 acetaminophen 500 mg tablet 500 - 1,000 mg PO TID PRN 10/23/22 08/27/24 fluticasone 250 mcg-salmeterol 50 1 inh inhalation BID 10/23/22 08/27/24 mcg/dose blistr powdr for inhalation (Advair Diskus) loperamide 2 mg capsule (Imodium 2 mg PO Q6H PRN 10/23/22 08/27/24 A-D) Allergies Allergy/AdvReac Type Severity Reaction Status Date / Time fluoxetine (From Prozac) Allergy Intermediate Vomiting Verified 08/27/24 20:16 codeine AdvReac Vomiting Verified 08/27/24 20:16 Review of Systems Status of ROS: Reports: 10 or more systems reviewed and unremarkable except as noted in History and below Narrative: Constitutional: No fevers, no weight gain or loss. Eyes: No discharge. No vision changes. HENT: No congestion, no sore throat, no ear pain. Cardiovascular: No chest pain, no palpitations. Respiratory: No shortness of breath, no wheezes, no cough. Gastrointestinal: No abdominal pain, no vomiting, no diarrhea. Genitourinary: No dysuria, no hematuria. Musculoskeletal: Left wrist injury and right knee injury as described above. Skin: No rashes, no pruritis. Neurological: No dizziness, weakness, sensory change, speech change. Endo/Heme/Allergies: No bruising or bleeding. No polydipsia. Pysch: no suicidality, no anxiety, no insomnia. All other systems reviewed and are negative. [facility] Medical History (Updated 08/27/24 @ 23:06 by Lev Estes MD) Panlobular emphysema ?J43.1 - Panlobular emphysema (ICD-10) Emphysema lung ?J43.9 - Emphysema, unspecified (ICD-10) Arthritis of carpometacarpal (CMC) joint of left thumb ?M18.12 - Unilateral primary osteoarthritis of first carpometacarpal joint, left hand (ICD-10) Back injury ?S39.92XA - Unspecified injury of lower back, initial encounter (ICD-10) Arthritis ?M19.90 - Unspecified osteoarthritis, unspecified site (ICD-10) IBS (irritable bowel syndrome) ?K58.9 - Irritable bowel syndrome without diarrhea (ICD-10) Gastritis ?K29.70 - Gastritis, unspecified, without bleeding (ICD-10) Colitis ?K52.9 - Noninfective gastroenteritis and colitis, unspecified (ICD-10) Hypertension ?I10 - Essential (primary) hypertension (ICD-10) Heart palpitations ?R00.2 - Palpitations (ICD-10) Left carpal navicular fracture ?S62.002A - Unspecified fracture of navicular [scaphoid] bone of left wrist, initial encounter for closed fracture (ICD-10) Gastroenteritis and colitis, viral ?A08.4 - Viral intestinal infection, unspecified (ICD-10) Unstable angina ?I20.0 - Unstable angina (ICD-10) Bursitis ?M71.9 - Bursopathy, unspecified (ICD-10) Surgical History (Updated 04/21/23 @ 14:04 by Cinthya Angulo) 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) ?Z96.641 - Presence of right artificial hip joint (ICD-10) History of colon resection ?Z90.49 - Acquired absence of other specified parts of digestive tract (ICD-10) S/P right rotator cuff repair (01/02/10) ?Z98.890 - Other specified postprocedural states (ICD-10) History of back surgery ?Z98.890 - Other specified postprocedural states (ICD-10) History of total left hip replacement (03/10/07) ?Z96.642 - Presence of left artificial hip joint (ICD-10) History of cardiac radiofrequency ablation (~2009) ?Z98.890 - Other specified postprocedural states (ICD-10) Family History Mother Asthma CHF (congestive heart failure) Brother Asthma Father Myocardial infarction Sister Colitis Social History Smoking Status: Former smoker What tobacco products do you use: cigarettes Smoking quit date/years: >15 years ago Do you use any of these nicotine containing products: None Second hand tobacco smoke exposure: No How often do you have a drink containing alcohol: never AUDIT-C Alcohol total score: 0 Non-prescribed substance use: denies use Caffeine: No service: No Exam Narrative: Exam Narrative: Constitutional: Well-developed, well-nourished, no acute distress. HEENT: Superficial abrasion with mild underlying swelling over the left cheek bone. Neck: Normal range of motion. Nontender. Supple. Heart: Regular. No murmurs. Normal rate. Intact distal pulses. Lungs: Clear to auscultation. No chest discomfort. No wheezes, rhonchi, or rales. Abdomen: Normal bowel sounds. Nontender. No rebound tenderness. Genitalia: Deferred. Back: No midline tenderness. Normal range of motion. Extremities: Diffuse pain in the left wrist without any sign of obvious deformity. The right knee has an effusion likely from underlying bleeding. There is no bruising or skin injury. Skin: Intact. No rash. Warm. No erythema or pallor. Neurologic: No altered sensation. No weakness. Alert and oriented. Psychiatric: No suicidality. No anxiety or depression. No insomnia. Nursing notes and vitals signs are reviewed. Const: Vital Signs, click to edit/add: Vital Signs - 24 hr 08/27/24 20:08 Temperature 99.5 F Pulse Rate [Pulse Oximeter] 64 Respiratory Rate 16 Blood Pressure [[facility] Upper [facility]] 153/100 H Pulse Oximetry 92 Oxygen Delivery Me thod Room Air Course Vital Signs Vital signs: Initial Vital Signs Temperature 99.5 F 08/27/24 20:08 Temperature Source Temporal Artery Scan 08/27/24 20:08 Pulse Rate 64 08/27/24 20:08 Respiratory Rate 16 08/27/24 20:08 Blood Pressure 153/100 H 08/27/24 20:08 Blood Pressure Mean 117 H 08/27/24 20:08 Blood Pressure Position Sitting 08/27/24 20:08 Pulse Oximetry 92 08/27/24 20:08 Oxygen Delivery Method Room Air 08/27/24 20:08 Vital Signs Temperature 99.5 F 08/27/24 20:08 Pulse Rate 64 08/27/24 20:08 Respiratory Rate 16 08/27/24 20:08 Blood Pressure 153/100 H 08/27/24 20:08 Pulse Oximetry 92 08/27/24 20:08 Oxygen Delivery Method Room Air 08/27/24 20:08 Temperature 99.5 F 08/27/24 20:08 Pulse Rate 64 08/27/24 20:08 Respiratory Rate 16 08/27/24 20:08 Blood Pressure 153/100 H 08/27/24 20:08 Pulse Oximetry 92 08/27/24 20:08 Oxygen Delivery Method Room Air 08/27/24 20:08 MDM - Fall MDM Narrative Medical decision making narrative: This patient comes in with injuries from a fall as described above. X-ray images are obtained of her left wrist and right knee. The right knee does show a nondisplaced patella fracture. The left wrist shows no obvious fracture with some possible hairline crack of the distal portion of the scaphoid bone. She does not have particular tenderness or swelling in this area. She is benefiting from a wrist splint that she had at home. A new wrist splint was provided. She is also placed in a knee immobilizer. She will not be able to use crutches given her left wrist injury but wishes to ambulate with the assistance of a cane and the knee immobilizer. A road test was done with these tools in place. She is instructed to follow-up with orthopedic clinic for ongoing management. She states that she will use Tylenol as needed and directed for pain. Discharge Plan Discharge Clinical Impression: Fracture, patella, Injury of wrist, left Patient Disposition: Home w/ Parent or Adult Condition: Stable Additional Instructions: Wear knee immobilizer and use cane for assistance in ambulating. Use wrist splint also as needed for discomfort. Follow-up with orthopedic clinic for ongoing management. Call [phone] for appointment. Prescriptions: No Action hydrochlorothiazide 25 mg tablet 25 mg PO DAILY metoprolol succinate 50 mg tablet extended release 24 hr 50 mg PO DAILY montelukast 10 mg tablet 10 mg PO HS albuterol sulfate 90 mcg/actuation HFA aerosol inhaler 1 puff inhalation QID PRN ipratropium-albuterol 0.5 mg-3 mg(2.5 mg base)/3 mL solution for nebulization 3 ml inhalation QID PRN lorazepam 0.5 mg tablet 0.5 mg PO Q6H PRN acetaminophen 500 mg tablet 500 - 1,000 mg PO TID PRN fluticasone propion-salmeterol [Advair Diskus] 250-50 mcg/dose blister with device 1 inh inhalation BID loperamide [Imodium A-D] 2 mg capsule 2 mg PO Q6H PRN Follow Up/Referrals: Ольга Gamble DO [Primary Care Provider] - Stand Alone Forms: [employer] Info Instructions
[2024-08-28] VITALS (15 sets, daily range): BP systolic 99–131; BP diastolic 58–81; PULSE 56–64; RESP 16–18; TEMP 36.1–36.9; O2SAT 91–97; BMI 26.6
[2024-08-28] MEDS: ONDANSETRON 2 MG/ML inj 4 MG IVP ×2 (00:05→03:33)
[2024-08-28] MEDS: HYDROmorphone 0.5 mg/0.5 ml inj 0.25 MG IVP (00:05)
[2024-08-28] MEDS: HYDROmorphone 0.5 mg/0.5 ml inj 0.2 MG IVP ×2 (01:00→03:29)
--- NOTE | 2024-08-28 01:47 | W.PM.THH&P_ITS ---
Telehealth- H&P: HPI History of Present Illness Date Seen: 08/28/24 Chief complaint: L wrist pain after fall Narrative: Georgette Kaminski is seen as an Interactive Telehealth visit. Georgette Kaminski is a 79 year old female who has a past medical history notable for SVT status post ablation, panlobular emphysema, hypertension who presented for evaluation after a fall.The patient states she was trying to get into her car but she slipped, she fell and hit her right knee and left wrist, she also scraped her cheek When she fell. She denied any significant head injury. She denied any loss of consciousness. She was able to get up and ambulate and actually got into her car and drove back to her home. After getting home she noticed worsening pain especially in her right knee but also in her left wrist. The pain continued to worsen to the point that it was difficult to ambulate on her leg she noticed that she was getting more swelling in her right knee which prompted her to seek attention in the ER. She is not on an to coagulants or antiplatelet agents. When she attempted to ambulate in the ER she became lightheaded and had severe pain. She does not tolerate most opioids due to severe nausea. In the ER she underwent imaging that showed fracture of the right patella, there was a possible scaphoid injury of the left wrist but she seems to have more generalized left wrist pain with out significant tenderness over the scaphoid. She was placed in immobilizer of the right knee and a left wrist brace. Review of Systems Status of ROS: Reports: 10 or more systems reviewed and unremarkable except as noted in History and below [facility] Medical History (Updated 08/27/24 @ 23:06 by Lev Estes MD) Panlobular emphysema ?J43.1 - Panlobular emphysema (ICD-10) Emphysema lung ?J43.9 - Emphysema, unspecified (ICD-10) Arthritis of carpometacarpal (CMC) joint of left thumb ?M18.12 - Unilateral primary osteoarthritis of first carpometacarpal joint, left hand (ICD-10) Back injury ?S39.92XA - Unspecified injury of lower back, initial encounter (ICD-10) Arthritis ?M19.90 - Unspecified osteoarthritis, unspecified site (ICD-10) IBS (irritable bowel syndrome) ?K58.9 - Irritable bowel syndrome without diarrhea (ICD-10) Gastritis ?K29.70 - Gastritis, unspecified, without bleeding (ICD-10) Colitis ?K52.9 - Noninfective gastroenteritis and colitis, unspecified (ICD-10) Hypertension ?I10 - Essential (primary) hypertension (ICD-10) Heart palpitations ?R00.2 - Palpitations (ICD-10) Left carpal navicular fracture ?S62.002A - Unspecified fracture of navicular [scaphoid] bone of left wrist, initial encounter for closed fracture (ICD-10) Gastroenteritis and colitis, viral ?A08.4 - Viral intestinal infection, unspecified (ICD-10) Unstable angina ?I20.0 - Unstable angina (ICD-10) Bursitis ?M71.9 - Bursopathy, unspecified (ICD-10) Surgical History (Updated 04/21/23 @ 14:04 by Cinthya Angulo) 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) ?Z96.641 - Presence of right artificial hip joint (ICD-10) History of colon resection ?Z90.49 - Acquired absence of other specified parts of digestive tract (ICD- 10) S/P right rotator cuff repair (01/02/10) ?Z98.890 - Other specified postprocedural states (ICD-10) History of back surgery ?Z98.890 - Other specified postprocedural states (ICD-10) History of total left hip replacement (03/10/07) ?Z96.642 - Presence of left artificial hip joint (ICD-10) History of cardiac radiofrequency ablation (~2009) ?Z98.890 - Other specified postprocedural states (ICD-10) Family History Mother Asthma CHF (congestive heart failure) Brother Asthma Father Myocardial infarction Sister Colitis Social History (Reviewed 09/01/23 @ 14:30 by Albina Hamm ~ [employer], [employer]) What is your current living situation?: I presently have a place to live Problems where you live: no known problems Problems where you live details: no known problems In the past 12 months, utilities in danger of being shut off: no In the past 12 mos, have been you worried that your food would run out before you had money to buy more?: never true In the past 12 mos, the food you bought just didn't last and you didn't have money to buy more?: never true Highest level of school completed/degree received: 11th grade Smoking Status: Former smoker What tobacco products do you use: cigarettes Smoking quit date/years: >15 years ago Do you use any of these nicotine containing products: None Second hand tobacco smoke exposure: No How often do you have a drink containing alcohol: never AUDIT-C Alcohol total score: 0 Non-prescribed substance use: denies use Caffeine: No How often does anyone, including family, friends and others, physically hurt you : never How often does anyone, including family, friends and others, insult or talk down to you: never How often does anyone, including family, friends and others, threaten you with harm: never How often does anyone, including family, friends and others, scream or curse at you: never service: No Meds Home Medications and Allergies Home Medications ?Medication ?Instructions ?Recorded ?Confirmed ?Type albuterol sulfate 90 mcg/actuation 1 puff inhalation QID PRN 06/10/22 08/27/24 History aerosol inhaler hydrochlorothiazide 25 mg tablet 25 mg PO DAILY 06/10/22 08/27/24 History ipratropium 0.5 mg-albuterol 3 mg 3 ml inhalation QID PRN 06/10/22 08/27/24 History (2.5 mg base)/3 mL nebulization soln lorazepam 0.5 mg tablet 0.5 mg PO Q6H PRN 06/10/22 08/27/24 History metoprolol succinate 50 mg 50 mg PO DAILY 06/10/22 08/27/24 History tablet,extended release 24 hr montelukast 10 mg tablet 10 mg PO HS 06/10/22 08/27/24 History acetaminophen 500 mg tablet 500 - 1,000 mg PO TID PRN 10/23/22 08/27/24 History fluticasone 250 mcg-salmeterol 50 1 inh inhalation BID 10/23/22 08/27/24 History mcg/dose blistr powdr for inhalation (Advair Diskus) loperamide 2 mg capsule (Imodium 2 mg PO Q6H PRN 10/23/22 08/27/24 History A-D) Allergies Allergy/AdvReac Type Severity Reaction Status Date / Time fluoxetine (From Prozac) Allergy Intermediate Vomiting Verified 08/27/24 20:16 codeine AdvReac Vomiting Verified 08/27/24 20:16 Exam Narrative Exam Narrative: Physical Exam GENERAL: ?vital signs reviewed, well developed and nourished, Appears very uncomfortable, actively vomiting HEENT: pupils are equal round and reactive to light, extraocular movements are grossly within normal limits and oral mucosa is moist. NECK: Supple without lymphadenopathy or thyromegaly according to nursing staff examination observation HEART: Regular rate and rhythm without any rubs, murmurs, or gallops. LUNGS: Clear to auscultation bilaterally with good air movement throughout ABDOMEN: Observation from nurse assisted exam, abdomen appears soft, nontender, and nondistended with Positive bowel sounds noted. EXTREMITIES: Strength and sensation is observed to be grossly within normal limits in the upper and lower extremities.? No focal strength deficit is observed. right knee in the immobilizer, left wrist brace SKIN:? Observed warm and dry with color normal, abrasion over the left cheek Const Vital Signs, click to edit/add: Vital Signs - 24 hr 08/27/24 20:08 08/27/24 20:42 08/27/24 20:45 Temperature 99.5 F Pulse Rate 62 61 Pulse Rate [Pulse Oximeter] 64 Respiratory Rate 16 Blood Pressure Blood Pressure [Right Upper Arm] 153/100 H Pulse Oximetry 92 95 95 Oxygen Delivery Method Room Air 08/27/24 21:00 08/27/24 21:02 08/27/24 21:15 Temperature Pulse Rate 62 62 59 L Pulse Rate [Pulse Oximeter] Respiratory Rate Blood Pressure 154/118 H Blood Pressure [Right Upper Arm] Pulse Oximetry 96 94 94 Oxygen Delivery Method 08/27/24 21:30 08/27/24 21:32 08/27/24 21:45 Temperature Pulse Rate 61 61 62 Pulse Rate [Pulse Oximeter] Respiratory Rate Blood Pressure 147/82 H Blood Pressure [Right Upper Arm] Pulse Oximetry 95 94 95 Oxygen Delivery Method 08/27/24 22:31 08/27/24 22:32 08/27/24 22:45 Temperature Pulse Rate 83 83 61 Pulse Rate [Pulse Oximeter] Respiratory Rate 16 Blood Pressure 134/88 Blood Pressure [Right Upper Arm] Pulse Oximetry 90 95 92 Oxygen Delivery Method Room Air 08/27/24 23:00 08/27/24 23:02 08/27/24 23:36 Temperature Pulse Rate 65 62 96 Pulse Rate [Pulse Oximeter] Respiratory Rate Blood Pressure 151/92 H Blood Pressure [Right Upper Arm] Pulse Oximetry 95 96 92 Oxygen Delivery Method 08/27/24 23:46 08/27/24 23:48 08/28/24 00:00 Temperature Pulse Rate 66 65 64 Pulse Rate [Pulse Oximeter] Respiratory Rate 18 Blood Pressure 130/82 Blood Pressure [Right Upper Arm] Pulse Oximetry 91 93 95 Oxygen Delivery Method Room Air 08/28/24 00:02 08/28/24 00:02 08/28/24 00:02 Temperature Pulse Rate 62 62 62 Pulse Rate [Pulse Oximeter] Respiratory Rate Blood Pressure 120/75 120/75 120/75 Blood Pressure [Right Upper Arm] Pulse Oximetry 94 94 94 Oxygen Delivery Method 08/28/24 00:15 08/28/24 00:30 08/28/24 00:32 Temperature Pulse Rate 63 60 61 Pulse Rate [Pulse Oximeter] Respiratory Rate 16 Blood Pressure 131/81 Blood Pressure [Right Upper Arm] Pulse Oximetry 95 93 94 Oxygen Delivery Method Room Air 08/28/24 00:33 Temperature Pulse Rate 60 Pulse Rate [Pulse Oximeter] Respiratory Rate Blood Pressure Blood Pressure [Right Upper Arm] Pulse Oximetry 93 Oxygen Delivery Method Room Air Assessment and Plan Assessment and plan (1) Injury of wrist, left: Status: Acute (2) Fracture, patella: Status: Acute (3) Panlobular emphysema: Problem comment: - on Advair as an outpatient Status: Acute (4) Hypertension: Problem comment: - well controlled on HCTZ and Metoprolol Status: Acute (5) Cardiac arrhythmia: Problem comment: - history of SVT, post ablation remotely - known history of PVCs - on Metoprolol Status: Acute Plan Fall with left wrist injury and patella fracture of the right knee Impaired mobility Given wrist injury unable to use crutches, x-ray with possible scaphoid fracture but no tenderness at the scaphoid OT/PT evaluation Had some lightheadedness in the ER, will check orthostatic vitals in a.m. Denied any other significant injury, mild abrasion on the face Denies any and a headache. Symptoms arriving to the floor she does have some mild neck pain. Will obtain a CT of the cervical spine Pain management with scheduled acetaminophen, as needed hydromorphone at low- dose given opioids tend to be good for severe nausea. Will have Zofran and Compazine as needed for severe nausea also given one-time dose of Toradol as she does not tolerate most opioids, will start PPI due to need for Toradol as she may need low-dose NSAIDs if we cannot control her pain Hypertension Resume home medications when verified History of SVT status post ablation Resume metoprolol when verified COPD without exacerbation Panlobular emphysema Advair twice daily with as needed DuoNebs Full code confirmed on admission Telehealth: Statement Statement Telehealth Visit: Today's History and Physical is provided via interactive telehealth by Rubin Hoff MD.? Patient is located at [facility].? Provider is located at [facility].? Nursing staff assisted with the patient's exam. The visit being done today meets criteria for a telehealth visit and the patient or patient?s parent/guardian is aware the visit is a telehealth visit. Camera Start Time: 03:36 Camera End Time: 03:48
[2024-08-28] MEDS: SODIUM CHLORIDE 0.9 % (FLUSH) 10 ML SYRINGE 5 ML IVF ×4 (03:28→22:09)
--- NOTE | 2024-08-28 03:40 | CRLHL7_ITS ---
For Patients: As a result of the Century Cures Act, medical imaging exams and procedure reports are released immediately into your electronic medical record. You may view this report before your referring provider. If you have questions, please contact your health care provider. INDICATION: Neck pain after fall. TECHNIQUE: CT cervical spine without contrast. COMPARISON: None. FINDINGS: Generalized bony demineralization. Cervical vertebral body height and alignment is maintained. Atlantooccipital and atlanto odontoid interval is preserved. No acute vertebral compression fracture or traumatic malalignment. Multilevel advanced degenerative changes with reduction of intervertebral disc height, uncovertebral as well as facet arthropathy. No paravertebral hematoma or fluid collection. Included lung apices are clear. 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 IMPRESSION: Multilevel advanced degenerative changes without acute traumatic injury of the cervical spine. Please note that all CT scans at this facility use dose modulation, iterative reconstruction, and/or weight-based dosing when appropriate to reduce radiation dose to as low as reasonably achievable. Dictated by Madelyn Pop MD @ 08/28/2024 5:11:09 AM (Electronically Signed)
[2024-08-28] MEDS: KETOROLAC 15 MG/ML inj IVP (06:38)
[2024-08-28] MEDS: OMEPRAZOLE 20 MG CAPSULE DR PO (06:39)
--- NOTE | 2024-08-28 07:02 | PC.NURSE ---
end of shift note: pt a&o. vss on 0.5L supplemental o2 to maintain spo2 >88%. pt poorly tolerates pain meds. emesis x2. pt reports pain to left cheek, right knee, left wrist, and neck. reports some relief with pain meds, ice pack, aqua k pad and elevation.
--- NOTE | 2024-08-28 07:42 | PM.IMPN1 ---
Progress Note: A&P Assessment and plan (1) Injury of wrist, left: Problem details: - Left wrist sprain. DOI: 08/27/24 - notably had scaphoid fracture of L wrist in 2019 Status: Acute (2) Fracture, patella: Problem details: - closed treatment of a closed, acute, nondisplaced, transverse, comminuted, intra-articular right patellar fracture. DOI: 08/27/24 - therapies following, patient will likely require TCU placement Status: Acute (3) Elevated troponin: Problem details: - 0.15 08/28/24, reassuring EKG - ddx: NSTEMI, demand ischemia - reviewed with Dr. Greco of Cardiology (plan below) - if worsening symptoms or increased troponin, consider heparin gtt x48 hours - ASA 08/28 - follow troponin, monitor on telemetry, TTE Status: Acute (4) Panlobular emphysema: Problem details: - on Advair as an outpatient, will continue this Status: Acute (5) Hypertension: Problem details: - well controlled on HCTZ and Metoprolol Status: Acute (6) Cardiac arrhythmia: Problem details: - history of SVT, post ablation remotely - known history of PVCs, continue home dose of Metoprolol Status: Acute Plan - per above - follow troponin, obtain TTE - will likely require increased level of care when medically stable for d/c Subjective Date Seen: 08/28/24 Interval history: Georgette was admitted last night after a mechanical fell (off of a curb walking to her car after BINGO). She has a R patellar fracture and L wrist injury, wearing L wrist brace and R knee immobilizer. Notably had a L wrist scaphoid fracture in 2019. Orthopedic Surgery consulted this morning, nonoperative management at this time. Today, while working with therapies she had an episode of nausea and lightheadedness. No CP, no vomiting, no syncope. After sitting down, EKG obtained and reassuring. Vital signs: BP 100/68, P 56 and regular Labs obtained which reveal a normal BMP and CBC, troponin 0.15 Given ASA 324mg Discussed case and findings with Dr. Greco of Cardiology, recommends following troponin, obtaining TTE. Exam Narrative: Exam Narrative: GEN: Alert and oriented, nontoxic HEENT: EOMIs bilaterally, no scleral icterus CV: RRR, No concerning murmurs R: LCTA bilaterally without concerning wheezing, air movement adequate Ext: wearing R knee immobilizer. Upon removal, she has edema of R knee without bruising or erythema. LUE: bruising near MTP of index finger. No significant ttp in L snuffbox Skin: No concerning skin lesions or rashes on exposed skin Neuro: No focal deficits or resting tremor Psych: Appropriate Const: Vital Signs, click to edit/add: Vital Signs - 24 hr 08/27/24 20:08 08/27/24 20:42 08/27/24 20:45 Temperature 99.5 F Pulse Rate 62 61 Pulse Rate [Pulse Oximeter] 64 Respiratory Rate 16 Blood Pressure Blood Pressure [Ri ght Arm] Blood Pressure [Ri ght Upper Arm] 153/100 H Pulse Oximetry 92 95 95 Oxygen Delivery Me thod Room Air 08/27/24 21:00 08/27/24 21:02 08/27/24 21:15 Temperature Pulse Rate 62 62 59 L Pulse Rate [Pulse Oximeter] Respiratory Rate Blood Pressure 154/118 H Blood Pressure [Ri ght Arm] Blood Pressure [Ri ght Upper Arm] Pulse Oximetry 96 94 94 Oxygen Delivery Me thod 08/27/24 21:30 08/27/24 21:32 08/27/24 21:45 Temperature Pulse Rate 61 61 62 Pulse Rate [Pulse Oximeter] Respiratory Rate Blood Pressure 147/82 H Blood Pressure [Ri ght Arm] Blood Pressure [Ri ght Upper Arm] Pulse Oximetry 95 94 95 Oxygen Delivery Me thod 08/27/24 22:31 08/27/24 22:32 08/27/24 22:45 Temperature Pulse Rate 83 83 61 Pulse Rate [Pulse Oximeter] Respiratory Rate 16 Blood Pressure 134/88 Blood Pressure [Ri ght Arm] Blood Pressure [Ri ght Upper Arm] Pulse Oximetry 90 95 92 Oxygen Delivery Me thod Room Air 08/27/24 23:00 08/27/24 23:02 08/27/24 23:36 Temperature Pulse Rate 65 62 96 Pulse Rate [Pulse Oximeter] Respiratory Rate Blood Pressure 151/92 H Blood Pressure [Ri ght Arm] Blood Pressure [Ri ght Upper Arm] Pulse Oximetry 95 96 92 Oxygen Delivery Me thod 08/27/24 23:46 08/27/24 23:48 08/28/24 00:00 Temperature Pulse Rate 66 65 64 Pulse Rate [Pulse Oximeter] Respiratory Rate 18 Blood Pressure 130/82 Blood Pressure [Ri ght Arm] Blood Pressure [Ri ght Upper Arm] Pulse Oximetry 91 93 95 Oxygen Delivery Me thod Room Air 08/28/24 00:02 08/28/24 00:02 08/28/24 00:02 Temperature Pulse Rate 62 62 62 Pulse Rate [Pulse Oximeter] Respiratory Rate Blood Pressure 120/75 120/75 120/75 Blood Pressure [Ri ght Arm] Blood Pressure [Ri ght Upper Arm] Pulse Oximetry 94 94 94 Oxygen Delivery Me thod 08/28/24 00:15 08/28/24 00:30 08/28/24 00:32 Temperature Pulse Rate 63 60 61 Pulse Rate [Pulse Oximeter] Respiratory Rate 16 Blood Pressure 131/81 Blood Pressure [Ri ght Arm] Blood Pressure [Ri ght Upper Arm] Pulse Oximetry 95 93 94 Oxygen Delivery Me thod Room Air 08/28/24 00:33 08/28/24 01:04 08/28/24 01:04 Temperature 98.4 F Pulse Rate 60 Pulse Rate [Pulse Oximeter] 59 L Respiratory Rate 18 18 Blood Pressure Blood Pressure [Ri ght Arm] 124/72 Blood Pressure [Ri ght Upper Arm] Pulse Oximetry 93 91 91 Oxygen Delivery Me thod Room Air Room Air Room Air 08/28/24 03:20 Temperature 97.5 F L Pulse Rate Pulse Rate [Pulse Oximeter] 60 Respiratory Rate 16 Blood Pressure Blood Pressure [Ri ght Arm] 126/66 Blood Pressure [Ri ght Upper Arm] Pulse Oximetry 95 Oxygen Delivery Me thod Room Air
[2024-08-28] MEDS: ACETAMINOPHEN 500 MG TABLET 1000 MG PO ×3 (08:51→22:10)
[2024-08-28] MEDS: METOPROLOL SUCCINATE (XL) 50 MG TAB PO (08:52)
--- NOTE | 2024-08-28 09:42 | P.ORCN_ITS ---
History of Present Illness HPI Time Seen by Provider: 09:00 Date Seen: 08/28/24 Consult date: 08/28/24 Requesting physician: Rosaura Harper Chief complaint: L wrist pain and R knee pain after fall Narrative: Consult requested regarding Georgette - right knee and left hand/wrist. Georgette sustained a fall yesterday when leaving [facility] (DOI: 08/27/24) when she mis-stepped off a curb and landed on an outstretched hand/wrist and directly on her right knee. Patient was alone and drove home afterwards. Shortly following she presented to [place] ED. Right knee imaging shows an acute, nondisplaced patellar fracture and a left wrist scaphoid fracture, likely chronic. Georgette was placed in a short wrist brace and knee immobilizer. Georgette was admitted for further evaluation, PT/OT consults and Orthopedic Consultation. This morning, she is resting comfortably in bed. Georgette c/o right anterior knee pain, localized around her patella, and diffuse left hand pain. Denies snuffbox tenderness. Georgette states her right knee is bothering her more than her left hand/wrist. Both areas of pain have improved overnight while wearing her wrist brace and knee immobilizer. Associated symptoms include: left hand ecchymosis (palmar and dorsum of 2nd metacarpal), diffuse left hand/wrist and right knee swelling. Pain is well managed with Tylenol. Georgette is unable to tolerate narcotics due to severe nausea. Right hand dominant. Previous injuries include: left wrist scaphoid fracture (2019) that healed well with non-operative management. Previous Yasir Forte PA-C patient. Denies previous right knee injuries and surgical history. Patient lives alone. [facility] Medical History (Updated 08/28/24 @ 10:14 by Afshan Pereira PA-C) Panlobular emphysema ?J43.1 - Panlobular emphysema (ICD-10) Emphysema lung ?J43.9 - Emphysema, unspecified (ICD-10) Arthritis of carpometacarpal (CMC) joint of left thumb ?M18.12 - Unilateral primary osteoarthritis of first carpometacarpal joint, left hand (ICD-10) Back injury ?S39.92XA - Unspecified injury of lower back, initial encounter (ICD-10) Arthritis ?M19.90 - Unspecified osteoarthritis, unspecified site (ICD-10) IBS (irritable bowel syndrome) ?K58.9 - Irritable bowel syndrome without diarrhea (ICD-10) Gastritis ?K29.70 - Gastritis, unspecified, without bleeding (ICD-10) Colitis ?K52.9 - Noninfective gastroenteritis and colitis, unspecified (ICD-10) Hypertension ?I10 - Essential (primary) hypertension (ICD-10) Heart palpitations ?R00.2 - Palpitations (ICD-10) Left carpal navicular fracture ?S62.002A - Unspecified fracture of navicular [scaphoid] bone of left wrist, initial encounter for closed fracture (ICD-10) Gastroenteritis and colitis, viral ?A08.4 - Viral intestinal infection, unspecified (ICD-10) Unstable angina ?I20.0 - Unstable angina (ICD-10) Bursitis ?M71.9 - Bursopathy, unspecified (ICD-10) Surgical History (Updated 04/21/23 @ 14:04 by Cinthya Angulo) 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) ?Z96.641 - Presence of right artificial hip joint (ICD-10) History of colon resection ?Z90.49 - Acquired absence of other specified parts of digestive tract (ICD- 10) S/P right rotator cuff repair (01/02/10) ?Z98.890 - Other specified postprocedural states (ICD-10) History of back surgery ?Z98.890 - Other specified postprocedural states (ICD-10) History of total left hip replacement (03/10/07) ?Z96.642 - Presence of left artificial hip joint (ICD-10) History of cardiac radiofrequency ablation (~2009) ?Z98.890 - Other specified postprocedural states (ICD-10) Family History Mother Asthma CHF (congestive heart failure) Brother Asthma Father Myocardial infarction Sister Colitis Social History What is your current living situation?: I presently have a place to live Problems where you live: no known problems Problems where you live details: no known problems In the past 12 months, utilities in danger of being shut off: no In the past 12 mos, have been you worried that your food would run out before you had money to buy more?: never true In the past 12 mos, the food you bought just didn't last and you didn't have money to buy more?: never true Highest level of school completed/degree received: 11th grade Smoking Status: Former smoker What tobacco products do you use: cigarettes Smoking quit date/years: >15 years ago Do you use any of these nicotine containing products: None Second hand tobacco smoke exposure: No How often do you have a drink containing alcohol: never AUDIT-C Alcohol total score: 0 Non-prescribed substance use: denies use Caffeine: No How often does anyone, including family, friends and others, physically hurt you : never How often does anyone, including family, friends and others, insult or talk down to you: never How often does anyone, including family, friends and others, threaten you with harm: never How often does anyone, including family, friends and others, scream or curse at you: never service: No Meds Home Medications and Allergies Home Medications ?Medication ?Instructions ?Recorded ?Confirmed ?Type albuterol sulfate 90 mcg/actuation 2 puff inhalation QID PRN 06/10/22 08/28/24 History aerosol inhaler hydrochlorothiazide 25 mg tablet 25 mg PO DAILY 06/10/22 08/27/24 History ipratropium 0.5 mg-albuterol 3 mg 3 ml inhalation QID PRN 06/10/22 08/27/24 History (2.5 mg base)/3 mL nebulization soln lorazepam 0.5 mg tablet 0.5 mg PO Q6H PRN 06/10/22 08/27/24 History metoprolol succinate 50 mg 50 mg PO DAILY 06/10/22 08/27/24 History tablet,extended release 24 hr montelukast 10 mg tablet 10 mg PO HS 06/10/22 08/27/24 History acetaminophen 500 mg tablet 500 - 1,000 mg PO TID PRN 10/23/22 08/27/24 History loperamide 2 mg capsule (Imodium 2 mg PO Q6H PRN 10/23/22 08/27/24 History A-D) fluticasone 500 mcg-salmeterol 50 1 inh inhalation BID 08/28/24 08/28/24 History mcg/dose blistr powdr for inhalation Allergies Allergy/AdvReac Type Severity Reaction Status Date / Time fluoxetine (From [facility]) Allergy Intermediate Vomiting Verified 08/27/24 20:16 codeine AdvReac Vomiting Verified 08/27/24 20:16 Ortho Exam Narrative Exam Narrative: Patient is alert and oriented x3. No acute distress. Converses with nonlabored breathing. Wearing knee immobilizer and short arm wrist brace. Right knee exam: No erythema, induration or cutaneous changes. No abrasions or open wounds. Diffuse soft tissue swelling and mild-moderate effusion present. Knee AROM: 0-10 degrees. Quad muscle activation intact upon command with slight increase in right patellar pain. Bilateral calves are soft and nontender. CMS intact with 2+ DP and PT pulses. Bradford warm digits with brisk capillary refill. Sensation confirmed distally. Left hand/wrist exam: No erythema, induration cutaneous changes. Ecchymosis present over palmar surface in the dorsum of the 2nd metacarpal. Diffuse soft tissue swelling present left hand and left wrist. Diffuse, mild tenderness dorsal and volar left hand 2nd-4th metacarpals. NO snuffbox tenderness. Wrist AROM: ext/flex: 20/30 degrees with discomfort. Active pronation/supination: 80/80 degrees without pain. Able to make full contact fist. Candy Puller strength 4+/5 with mild-moderate discomfort. CMS intact with 2+ radial pulse. Bradford, warm digits with brisk capillary refill. Sensation confirmed distally. Const Vital Signs, click to edit/add: Vital Signs - 24 hr 08/27/24 20:08 08/27/24 20:42 08/27/24 20:45 Temperature 99.5 F Pulse Rate 62 61 Pulse Rate [Pulse Oximeter] 64 Respiratory Rate 16 Blood Pressure Blood Pressure [Right Arm] Blood Pressure [Right Upper Arm] 153/100 H Pulse Oximetry 92 95 95 Oxygen Delivery Method Room Air Oxygen Flow Rate 08/27/24 21:00 08/27/24 21:02 08/27/24 21:15 Temperature Pulse Rate 62 62 59 L Pulse Rate [Pulse Oximeter] Respiratory Rate Blood Pressure 154/118 H Blood Pressure [Right Arm] Blood Pressure [Right Upper Arm] Pulse Oximetry 96 94 94 Oxygen Delivery Method Oxygen Flow Rate 08/27/24 21:30 08/27/24 21:32 08/27/24 21:45 Temperature Pulse Rate 61 61 62 Pulse Rate [Pulse Oximeter] Respiratory Rate Blood Pressure 147/82 H Blood Pressure [Right Arm] Blood Pressure [Right Upper Arm] Pulse Oximetry 95 94 95 Oxygen Delivery Method Oxygen Flow Rate 08/27/24 22:31 08/27/24 22:32 08/27/24 22:45 Temperature Pulse Rate 83 83 61 Pulse Rate [Pulse Oximeter] Respiratory Rate 16 Blood Pressure 134/88 Blood Pressure [Right Arm] Blood Pressure [Right Upper Arm] Pulse Oximetry 90 95 92 Oxygen Delivery Method Room Air Oxygen Flow Rate 08/27/24 23:00 08/27/24 23:02 08/27/24 23:36 Temperature Pulse Rate 65 62 96 Pulse Rate [Pulse Oximeter] Respiratory Rate Blood Pressure 151/92 H Blood Pressure [Right Arm] Blood Pressure [Right Upper Arm] Pulse Oximetry 95 96 92 Oxygen Delivery Method Oxygen Flow Rate 08/27/24 23:46 08/27/24 23:48 08/28/24 00:00 Temperature Pulse Rate 66 65 64 Pulse Rate [Pulse Oximeter] Respiratory Rate 18 Blood Pressure 130/82 Blood Pressure [Right Arm] Blood Pressure [Right Upper Arm] Pulse Oximetry 91 93 95 Oxygen Delivery Method Room Air Oxygen Flow Rate 08/28/24 00:02 08/28/24 00:02 08/28/24 00:02 Temperature Pulse Rate 62 62 62 Pulse Rate [Pulse Oximeter] Respiratory Rate Blood Pressure 120/75 120/75 120/75 Blood Pressure [Right Arm] Blood Pressure [Right Upper Arm] Pulse Oximetry 94 94 94 Oxygen Delivery Method Oxygen Flow Rate 08/28/24 00:15 08/28/24 00:30 08/28/24 00:32 Temperature Pulse Rate 63 60 61 Pulse Rate [Pulse Oximeter] Respiratory Rate 16 Blood Pressure 131/81 Blood Pressure [Right Arm] Blood Pressure [Right Upper Arm] Pulse Oximetry 95 93 94 Oxygen Delivery Method Room Air Oxygen Flow Rate 08/28/24 00:33 08/28/24 01:04 08/28/24 01:04 Temperature 98.4 F Pulse Rate 60 Pulse Rate [Pulse Oximeter] 59 L Respiratory Rate 18 18 Blood Pressure Blood Pressure [Right Arm] 124/72 Blood Pressure [Right Upper Arm] Pulse Oximetry 93 91 91 Oxygen Delivery Method Room Air Room Air Room Air Oxygen Flow Rate 08/28/24 03:20 08/28/24 07:22 08/28/24 07:22 Temperature 97.5 F L 97.0 F L Pulse Rate Pulse Rate [Pulse Oximeter] 60 61 61 Respiratory Rate 16 18 18 Blood Pressure Blood Pressure [Right Arm] 126/66 115/65 Blood Pressure [Right Upper Arm] Pulse Oximetry 95 93 Oxygen Delivery Method Room Air Nasal Cannula Oxygen Flow Rate 0.5 Results Diagnostic results Wrist/Hand x-ray: report reviewed and image reviewed (3-view left wrist images were reviewed from [facility] dated 08/27/24. These show: questionable irregularity of the scaphoid distal pole, which may represent projectional artifact or nondisplaced fracture. However, patient denies snuffbox tenderness. ) Knee x-ray: report reviewed and image reviewed (2-view right knee images were reviewed from [facility] dated 08/27/24. These show: a comminuted, nondisplaced patellar fracture. Moderate joint effusion. Tricompartmental osteoarthrosis. Meniscal chondrocalcinosis. Soft tissue swelling.) Additional Comments: I also reviewed 3-view left wrist images dated 08/09/19 and 09/22/19 that shows an acute, nondisplaced fracture of the scaphoid that healed well with non- operative management. Assessment and Plan Assessment and plan (1) Injury of wrist, left: Problem comment: Left wrist sprain. DOI: 08/27/24. Status: Acute Assessment and Plan: The linear lucency across the distal pole of the scaphoid noted on yesterdays left wrist x-rays are a chronic finding from her injury in 2019. She denies snuffbox tenderness today. No acute fracture findings. Georgette will continue to wear her wrist brace daily. She will remove to work on gentle wrist ROM as tolerated. Activities as tolerated. ROM unrestricted. Total time spent: Total time spent is greater than 50% in coordination of care (as documented) at patient's floor/unit and/or counseling patient: 30 minutes. (2) Fracture, patella: Problem comment: Closed treatment of a closed, acute, nondisplaced, transverse, comminuted, intra-articular right patellar fracture. DOI: 08/27/24. Status: Acute Assessment and Plan: Georgette and I reviewed her right knee x-rays together. Non-operative treatment is recommended. Georgette will continue to wear her knee immobilizer x 4-6 weeks. May consider switching her to a hinged knee brace at her next Orthopedic follow-up appointment in 1-2 weeks. Georgette may weightbear as tolerated. No ROM recommended while weightbearing. Georgette may range her knee 0-30 degrees while non- weightbearing as her pain allows. She will work on quad strengthening exercises in hope of preventing quad muscle atrophy. For pain management, I recommend rest, ice, Tylenol and/or Ibuprofen PRN. Patient is unable tolerate narcotic medications. Patient lives alone and may benefit from a short term rehab facility. If she does not qualify, then I recommend scheduling outpatient PT/OT (wrist and knee) prior to her discharge. Patient will follow-up with Orthopedics in 1-2 weeks for clinical re-evaluation. All questions were answered. Total time spent: Total time spent is greater than 50% in coordination of care (as documented) at patient's floor/unit and/or counseling patient: 30 minutes.
[2024-08-28 11:12] LABS: Basophils Absolute Auto 0.01 K/uL (0.00-0.30); Basophils Percent Auto 0.2 % (0.0-3.0); Eosinophils Absolute Auto 0.02 K/uL (0.00-0.50); Eosinophils Percent Auto 0.3 % (0.0-7.0); Hematocrit 35.8 % (33.0-51.0); Immature Granulocytes Abs Auto 0.01 K/uL (0.00-0.30); Immature Granulocytes Pct Auto 0.2 %; Lymphocytes Percent Auto 12.8 % (20-44); Mean Corpuscular HGB Conc 34 gm/dL (32-36); Mean Corpuscular Hemoglobin 30 pg (26-34); Mean Corpuscular Volume 91 fL (80-100); Monocytes Percent Auto 9.7 % (0.0-11.0); Neutrophils Percent Auto 76.8 % (42.0-72.0); Platelet Count* 198 K/uL (140-440); RDW Coefficient of Variation % 13.5 % (11.5-15.5); Red Blood Count 3.95 m/uL (4.00-5.20); White Blood Count* 6.16 K/uL (4.50-11.00)
[2024-08-28 11:13] LABS: Slide Review Reflex No
[2024-08-28 11:24] LABS: Albumin* 3.6 g/dL (3.3-5.0); Chloride* 102 mmol/L (96-114)
[2024-08-28 11:25] LABS: Potassium* 3.8 mmol/L (3.6-5.1); Sodium* 134 mmol/L (135-149)
[2024-08-28 11:27] LABS: Anion Gap 5 mEq/L (7-15); Aspartate Amino Transferase* 20 U/L (12-35); Bilirubin Total* 0.5 mg/dL (0.1-1.5); Carbon Dioxide* 27 mmol/L (20-32); Est. Creatinine Clearance* 43.63; Estimated Glomerular Filt Rate 57 ml/min; Total Protein* 6.1 g/dL (6.0-8.3)
[2024-08-28 11:28] LABS: Alanine Aminotransferase* 14 U/L (4-35); Alkaline Phosphatase* 65 U/L (40-150); Blood Urea Nitrogen* 20 mg/dL (7-30); Glucose* 134 mg/dL (60-115)
[2024-08-28 11:41] LABS: Troponin I* 0.15 ng/mL (0.01-0.04)
[2024-08-28 12:00] LABS: Lab Add On Test New Spec Needed
[2024-08-28 12:05] LABS: HCO3 VBG 28 mmol/L (21-28); PCO2 VBG 41 mmHG (40-50); PO2 VBG 52.5 mmHG (25-47); pH VBG 7.444 (7.32-7.43)
[2024-08-28] MEDS: ASPIRIN 81 MG TAB.CHEW 324 MG PO (12:06)
--- NOTE | 2024-08-28 12:09 | PC.NURSE ---
Pt stated that she felt weird, nausea and headache at 1045. Hospitalist notified. EKG done; see chart. Lab work done. Medication give; see EMAR.
[2024-08-28 16:29] LABS: Troponin I* 0.11 ng/mL (0.01-0.04)
--- NOTE | 2024-08-28 19:36 | PC.NURSE ---
Pt alert and oriented. Pt had no complaints of pain. Pt had episode where Pt felt off hospitalist notified, labs drawn, EKG done, medication given. This afternoon Pt states she feels much better than this morning. Per PT Pt is a pivot assist of two with gait belt and four prong cane. Pt's appetite improved through out the day. Pt had family at bedside mid evening.
[2024-08-29] VITALS (8 sets, daily range): BP systolic 101–123; BP diastolic 60–69; PULSE 54–95; RESP 14–18; TEMP 36.3–37; O2SAT 91–94
[2024-08-29 06:36] LABS: Basophils Absolute Auto 0.01 K/uL (0.00-0.30); Basophils Percent Auto 0.2 % (0.0-3.0); Eosinophils Absolute Auto 0.06 K/uL (0.00-0.50); Hematocrit 35.3 % (33.0-51.0); Hemoglobin* 11.6 gm/dL (12.0-16.0); Immature Granulocytes Abs Auto 0.01 K/uL (0.00-0.30); Immature Granulocytes Pct Auto 0.2 %; Lymphocytes Percent Auto 16.1 % (20-44); Mean Corpuscular HGB Conc 33 gm/dL (32-36); Mean Corpuscular Hemoglobin 30 pg (26-34); Mean Corpuscular Volume 92 fL (80-100); Monocytes Percent Auto 8.2 % (0.0-11.0); Neutrophils Percent Auto 74.3 % (42.0-72.0); Platelet Count* 158 K/uL (140-440); RDW Coefficient of Variation % 13.3 % (11.5-15.5); Red Blood Count 3.83 m/uL (4.00-5.20); White Blood Count* 6.01 K/uL (4.50-11.00)
[2024-08-29 06:39] LABS: Albumin* 3.2 g/dL (3.3-5.0); Chloride* 103 mmol/L (96-114); Sodium* 136 mmol/L (135-149)
[2024-08-29 06:42] LABS: Alkaline Phosphatase* 61 U/L (40-150); Anion Gap 2 mEq/L (7-15); Aspartate Amino Transferase* 17 U/L (12-35); Bilirubin Total* 0.6 mg/dL (0.1-1.5); Blood Urea Nitrogen* 21 mg/dL (7-30); Carbon Dioxide* 31 mmol/L (20-32); Est. Creatinine Clearance* 43.63; Estimated Glomerular Filt Rate 57 ml/min; Potassium* 3.3 mmol/L (3.6-5.1); Total Protein* 5.8 g/dL (6.0-8.3)
[2024-08-29 06:43] LABS: Alanine Aminotransferase* 12 U/L (4-35); Calcium* 8.7 mg/dL (8.4-10.6); Glucose* 101 mg/dL (60-115); Slide Review Reflex No
[2024-08-29] MEDS: OMEPRAZOLE 20 MG CAPSULE DR PO (06:45)
--- NOTE | 2024-08-29 07:25 | PC.NURSE ---
END OF SHIFT NOTE: PT PLEASANT AND COOPERATIVE. A&O. DENIES CP, SOB, N/V. PT REMAINED IN BED THIS SHIFT. VSS ON RA; AFEBRILE. BED ALARM ON AND CALL LIGHT WITHIN PT?S REACH. TELE SINUS SUMMER WITH 1ST DEGREE HB.
[2024-08-29] MEDS: POTASSIUM BICARB 25 MEQ EFFERVESCENT TAB PO (08:12)
[2024-08-29] MEDS: IPRAT-ALBUT 0.5-2.5 MG/3 ML NEB 1 NEB IH ×4 (08:13→23:38)
[2024-08-29] MEDS: ACETAMINOPHEN 500 MG TABLET 1000 MG PO ×3 (08:18→20:52)
[2024-08-29] MEDS: METOPROLOL SUCCINATE (XL) 50 MG TAB PO (08:18)
[2024-08-29] MEDS: SODIUM CHLORIDE 0.9 % (FLUSH) 10 ML SYRINGE 5 ML IVF ×2 (08:21→20:53)
--- NOTE | 2024-08-29 09:15 | NUTR.NU ---
RDN with nutrition screen related to positive MST score for unsure of weight loss and unsure of low appetite recently, and positive skin risk. Patient admitted after fall, has patella fracture and left wrist injury requiring placement. Current weight 167lb 1.6oz; height 5ft 7in; BMI 26.2 kg/m2. Per weight history patient's weight is stable without significant weight loss recently. Current diet order is Regular. Intakes since admit have been adequate at 50%+. No nutrition interventions at this time due to stable weight and adequate oral intakes. RDN will continue to monitor and follow-up prn.
--- NOTE | 2024-08-29 12:42 | P.IMPN_ITS ---
Progress Note: A&P Assessment and plan (1) Injury of wrist, left: Problem details: - Left wrist sprain. DOI: 08/27/24 - notably had scaphoid fracture of L wrist in 2019 Status: Acute (2) Fracture, patella: Problem details: - closed treatment of a closed, acute, nondisplaced, transverse, comminuted, intra-articular right patellar fracture. DOI: 08/27/24 - therapies following, requires TCU placement at this time Status: Acute (3) Elevated troponin: Problem details: - 08/28/24: troponin 0.15, reassuring EKG, given ASA - ddx: NSTEMI, demand ischemia - reviewed with Dr. Greco of Cardiology, no acute interventions required - troponin trended downward with resolution of symptoms - reassuring telemetry, TTE 08/28/24: Final Impressions: 1. Technically limited exam. 2. Normal LV size, borderline wall thickness, estimated EF of 70 - 75%. 3. RV size is not well visualized, function appears normal. 4. No significant valve disease detected. Status: Acute (4) Panlobular emphysema: Problem details: - on Advair as an outpatient, will continue this - reordered nebulizers 08/29/24 Status: Acute (5) Hypertension: Problem details: - well controlled on HCTZ and Metoprolol as an outpatient - holding HCTZ during stay given lower BPs Status: Acute (6) Cardiac arrhythmia: Problem details: - history of SVT, post ablation remotely - known history of PVCs, continue home dose of Metoprolol Status: Acute Plan - per above - awaiting placement Subjective Date Seen: 08/29/24 Interval history: Georgette was admitted to the hospital on 08/27 after a mechanical fall. She has a R patellar fracture and L wrist injury, wearing L wrist brace and R knee immobilizer. Has been seen by Orthopedic Surgery who recommend nonoperative management. Therapies following, TCU stay recommended. Yesterday, she was noted to have an acute episode of nausea and lightheadedness during therapy. EKG at that time reassuring, BP lower than baseline (100s/60s), troponin elevated at 0.15 Symptoms resolved, troponin decreased to 0.11, TTE reassuring. This morning, Georgette is feeling close to baseline, notes that her breathing is a little tight as she hasn't had her nebulizer treatments (normally does these regularly at home). No other concerns for hospitalist team. Exam Narrative: Exam Narrative: GEN: Alert and oriented, nontoxic, speaking in full sentences HEENT: EOMIs bilaterally, no scleral icterus CV: RRR, No concerning murmurs R: Air movement adequate, no rales or wheezing Ext: wearing R knee immobilizer and L wrist brace Skin: No concerning skin lesions or rashes on exposed skin Neuro: No focal deficits Psych: Appropriate Const: Vital Signs, click to edit/add: Vital Signs - 24 hr 08/28/24 15:00 08/28/24 15:06 08/28/24 22:05 Temperature 98.4 F 97.7 F Pulse Rate Pulse Rate [Pulse Oximeter] 56 L 56 L 58 L Respiratory Rate 18 18 Blood Pressure [Ri ght Arm] 99/58 L 111/73 Pulse Oximetry 97 94 Oxygen Delivery Me thod Nasal Cannula Nasal Cannula Oxygen Flow Rate 0.5 0.5 08/28/24 22:05 08/28/24 22:05 08/28/24 23:00 Temperature Pulse Rate 57 L Pulse Rate [Pulse Oximeter] 58 L 58 L Respiratory Rate 18 16 Blood Pressure [Ri ght Arm] Pulse Oximetry 92 Oxygen Delivery Me thod Nasal Cannula Oxygen Flow Rate 0.5 08/29/24 04:10 08/29/24 07:00 08/29/24 07:00 Temperature 97.4 F L 98.6 F Pulse Rate Pulse Rate [Pulse Oximeter] 54 L 65 65 Respiratory Rate 14 16 16 Blood Pressure [Ri ght Arm] 123/69 103/67 Pulse Oximetry 94 94 Oxygen Delivery Me thod Nasal Cannula Room Air Oxygen Flow Rate 0.5 08/29/24 07:00 08/29/24 11:43 Temperature Pulse Rate 55 L Pulse Rate [Pulse Oximeter] 64 Respiratory Rate Blood Pressure [Ri ght Arm] 122/67 Pulse Oximetry 94 Oxygen Delivery Me thod Room Air Oxygen Flow Rate Labs Labs: Laboratory Results - last 24 hr 08/28/24 08/29/24 15:55 06:00 WBC 6.01 RBC 3.83 L Hgb 11.6 L Hct 35.3 MCV 92 MCH 30 MCHC 33 RDW Coeff of Virgil 13.3 Plt Count 158 Neut % (Auto) 74.3 H Lymph % (Auto) 16.1 L Sunflower % (Auto) 8.2 Eos % (Auto) 1.0 Baso % (Auto) 0.2 Neut # (Auto) 4.50 Lymph # (Auto) 1.00 Sunflower # (Auto) 0.50 Eos # (Auto) 0.06 Baso # (Auto) 0.01 Abs Immat Gran (auto) 0.01 Imm/Tot Granulo (auto) 0.2 Sodium 136 Potassium 3.3 L Chloride 103 Carbon Dioxide 31 Anion Gap 2 L BUN 21 Creatinine 1.0 Estimated Creat Clear 43.63 Estimated GFR 57 Glucose 101 Calcium 8.7 Total Bilirubin 0.6 AST 17 ALT 12 Alkaline Phosphatase 61 Troponin I 0.11 H* Total Protein 5.8 L Albumin 3.2 L
--- NOTE | 2024-08-29 15:03 | PC.SOCIAL ---
Discharge planning: lunchroom worker met with pt today to discuss discharge planning. Pt is being recommended for short-term rehab at discharge. Pt would like to go to [facility] in [place] or [facility] in [place]. lunchroom worker reached out to both facilities and they both sated that they have openings mid to later this week. lunchroom worker sent a referral to Haily at [facility] in [place] and Janelle at [facility] in [place]. Both facilities came back stating that they could accept the pt on Thursday of this week. Pt will go to [facility] in [place] and will plan to have family transport her. She needs to be there by noon on Thursday. lunchroom worker spoke to the provider on duty with this update with a plan for discharge on Thursday. Pt will have a qualifying Medicare covered rehab stay, as she will meet her three night inpatient stay by Thursday. Social work to follow-up as needed.
[2024-08-30] VITALS (9 sets, daily range): BP systolic 109–127; BP diastolic 58–73; PULSE 68–100; RESP 16–18; TEMP 36.2–36.9; O2SAT 93–94
[2024-08-30] MEDS: OMEPRAZOLE 20 MG CAPSULE DR PO (06:24)
--- NOTE | 2024-08-30 06:33 | PC.NURSE ---
End of shift note: Pt A&Ox4 and able to make needs known. She is continent and incontinent of bladder at times. She transfers/ambulates with assist of 1 using gait belt and platform warm. Knee immobilizer worn to RLE and splint worn to L wrist with CMS to RLE and LUE intact. VSS. Pt has been afebrile and on RA throughout the shift. Pt on tele with NSR with first degree AV block noted which is not a new finding. Pain to RLE/L wrist controlled with rest, repositioning, scheduled Tylenol and ice. Pt stated she does not want to take stronger pain medication than Tylenol as medication causes nausea. Pt noted to be teary this morning, expressing sadness over her fall and injuries sustained before hospitalization. This RN provided 1:1 moral support with patient.
[2024-08-30 06:53] LABS: Chloride* 106 mmol/L (96-114); Sodium* 137 mmol/L (135-149)
[2024-08-30 06:55] LABS: Creatinine* 0.9 mg/dL (0.5-1.5); Est. Creatinine Clearance* 43.63; Estimated Glomerular Filt Rate 65 ml/min
[2024-08-30 06:56] LABS: Anion Gap -1 mEq/L (7-15); Blood Urea Nitrogen* 21 mg/dL (7-30); Calcium* 8.9 mg/dL (8.4-10.6); Carbon Dioxide* 32 mmol/L (20-32); Glucose* 107 mg/dL (60-115)
[2024-08-30 07:07] LABS: Potassium* 3.8 mmol/L (3.6-5.1)
[2024-08-30] MEDS: IPRAT-ALBUT 0.5-2.5 MG/3 ML NEB 1 NEB IH ×3 (08:09→19:39)
--- NOTE | 2024-08-30 08:12 | CRLHL7_ITS ---
For Patients: As a result of the Century Cures Act, medical imaging exams and procedure reports are released immediately into your electronic medical record. You may view this report before your referring provider. If you have questions, please contact your health care provider. INDICATION: Cough. COPD. COMPARISON: None TECHNIQUE: Single-view study obtained portably FINDINGS: TUBES AND LINES: None. HEART AND MEDIASTINUM: Enlarged heart. LUNGS AND PLEURAL SPACES: The lungs appear normal.The pleural spaces are unremarkable. OSSEOUS STRUCTURES: Age-appropriate appearance. No acute focal finding. IMPRESSION: Enlarged heart. Lungs show no focal abnormality. Dictated by Angel Mcdonald MD @ 08/30/2024 9:04:50 AM (Electronically Signed)
--- NOTE | 2024-08-30 08:25 | P.IMPN_ITS ---
Progress Note: A&P Assessment and plan (1) Injury of wrist, left: Problem details: - Left wrist sprain. DOI: 08/27/24 - notably had scaphoid fracture of L wrist in 2019 Status: Acute (2) Fracture, patella: Problem details: - closed treatment of a closed, acute, nondisplaced, transverse, comminuted, intra-articular right patellar fracture. DOI: 08/27/24 - therapies following, requires TCU placement at this time Status: Acute (3) Elevated troponin: Problem details: - 08/28/24: troponin 0.15, reassuring EKG, given ASA - ddx: NSTEMI, demand ischemia - reviewed with Dr. Greco of Cardiology on 08/28, no acute interventions required - troponin trended downward with resolution of symptoms - reassuring telemetry, TTE 08/28/24: Final Impressions: 1. Technically limited exam. 2. Normal LV size, borderline wall thickness, estimated EF of 70 - 75%. 3. RV size is not well visualized, function appears normal. 4. No significant valve disease detected. Status: Acute (4) Panlobular emphysema: Problem details: - on home Advair and nebulizers Status: Acute (5) Hypertension: Problem details: - well controlled on HCTZ and Metoprolol as an outpatient - holding HCTZ during stay given lower BPs Status: Acute (6) Cardiac arrhythmia: Problem details: - history of SVT, post ablation remotely - known history of PVCs, continue home dose of Metoprolol - stable telemetry Status: Acute Plan - per above - to TCU tomorrow Subjective Date Seen: 08/30/24 Interval history: Georgette was admitted to the hospital on 08/27 after a mechanical fall while walking to her car after [employer]. She sustained a R patellar fracture and L wrist injury, wearing L wrist brace and R knee immobilizer. Has been seen by Orthopedic Surgery, their team recommends nonoperative management for the patellar fracture. Therapies following, TCU stay recommended. On hospital day one, she had an acute episode of nausea and lightheadedness during therapy. Workup: reassuring EKG, elevated troponin (peaked at 0.15), reassuring TTE. Symptoms resolved and troponin trended downward after episode. This morning, Georgette notes a dry cough (was up for a large part of the night with this). On her home Advair and nebs. No concerning lab findings, continuing to hold HCTZ for lower BPs. Portable CXR obtained this morning and reassuring. Exam Narrative: Exam Narrative: GEN: Alert HEENT: Normal external ears, EOMIs bilaterally, no scleral icterus CV: RRR, No concerning murmurs, rubs, or gallops R: Expiratory rhonchi throughout, no wheezing Ext: wearing L wrist brace and R knee immobilizer, no LE edema Skin: No concerning skin lesions or rashes on exposed skin Neuro: Nonfocal Psych: Appropriate Const: Vital Signs, click to edit/add: Vital Signs - 24 hr 08/29/24 11:43 08/29/24 15:00 08/29/24 15:00 Temperature 97.8 F Pulse Rate Pulse Rate [Pulse Oximeter] 64 95 95 Respiratory Rate 18 18 Blood Pressure [Ri ght Arm] 122/67 112/69 Pulse Oximetry 94 93 Oxygen Delivery Me thod Room Air Room Air 08/29/24 20:00 08/29/24 22:23 08/29/24 23:00 Temperature 97.3 F L Pulse Rate 72 Pulse Rate [Pulse Oximeter] 65 66 Respiratory Rate 18 18 Blood Pressure [Ri ght Arm] 108/62 Pulse Oximetry 91 Oxygen Delivery Me thod Room Air 08/29/24 23:34 08/30/24 02:54 08/30/24 07:00 Temperature 97.3 F L 97.1 F L Pulse Rate Pulse Rate [Pulse Oximeter] 66 75 72 Respiratory Rate 18 18 16 Blood Pressure [Ri ght Arm] 101/60 124/64 Pulse Oximetry 93 94 Oxygen Delivery Me thod Room Air Room Air 08/30/24 07:00 Temperature 97.4 F L Pulse Rate Pulse Rate [Pulse Oximeter] 72 Respiratory Rate 16 Blood Pressure [Ri ght Arm] 109/71 Pulse Oximetry 94 Oxygen Delivery Me thod Room Air Labs Labs: Laboratory Results - last 24 hr 08/30/24 05:52 Sodium 137 Potassium 3.8 Chloride 106 Carbon Dioxide 32 Anion Gap -1 L BUN 21 Creatinine 0.9 Estimated Creat Clear 43.63 Estimated GFR 65 Glucose 107 Calcium 8.9
[2024-08-30] MEDS: METOPROLOL SUCCINATE (XL) 50 MG TAB PO (08:57)
[2024-08-30] MEDS: ACETAMINOPHEN 500 MG TABLET 1000 MG PO ×3 (08:57→20:27)
[2024-08-30] MEDS: SODIUM CHLORIDE 0.9 % (FLUSH) 10 ML SYRINGE 5 ML IVF ×2 (08:58→20:29)
--- NOTE | 2024-08-30 14:47 | PC.SOCIAL ---
Addendum entered and electronically signed by KEL Galvan 08/30/24 15:26: Discharge planning: Pre-admission screening completed and sent to Haily at [facility] via secure email. PAS #[id number]. Social work to follow-up as needed. Original Note: Discharge planning: hide worker met with pt today to discuss transportation options for discharge. Pt's [id number] is going to be transporting her to [facility] in [place] tomorrow at 11:30am. hide worker provided pt with a copy of The Important Message from Medicare form and explained the appeal process with Medicare. Pt has no plans to appeal her discharge and is pleased with her discharge plan. Social work to follow-up as needed.
[2024-08-31 03:34] VITALS: BP 151/81; PULSE 81; RESP 18; TEMP 36.3; O2SAT 95
[2024-08-31] MEDS: OMEPRAZOLE 20 MG CAPSULE DR PO (05:55)
--- NOTE | 2024-08-31 06:28 | PC.NURSE ---
End of shift note [id number]: Pt alert & oriented x 4 and able to make needs known. She transfers/ambulates using podium walker, gait belt and assist of 1. 3/10 R knee pain when asked with ice provided to R knee, rest encouraged, repositioning performed and scheduled Tylenol administered. Pt continues to have dry nonproductive cough with scheduled neb tx administered. Splint worn to L wrist and immobilizer worn to RLE. VSS- pt has been afebrile and on RA throughout the shift. She is mostly continent of bladder though does have occasional urinary incontinence noted due to urgency or when coughing. IV to R FA patent and SL. Bed alarm on, call light within reach. Pt's discharge plan is to discharge to [facility] today.
[2024-08-31 07:00] VITALS: BP 150/84; PULSE 83; PULSE 92; RESP 20; TEMP 36.1; O2SAT 92
[2024-08-31 07:32] LABS: Chloride* 106 mmol/L (96-114); Potassium* 3.9 mmol/L (3.6-5.1); Sodium* 137 mmol/L (135-149)
[2024-08-31 07:34] LABS: Basophils Absolute Auto 0.01 K/uL (0.00-0.30); Basophils Percent Auto 0.1 % (0.0-3.0); Creatinine* 0.8 mg/dL (0.5-1.5); Eosinophils Absolute Auto 0.06 K/uL (0.00-0.50); Eosinophils Percent Auto 0.8 % (0.0-7.0); Est. Creatinine Clearance* 43.63; Estimated Glomerular Filt Rate 74 ml/min; Hematocrit 34.6 % (33.0-51.0); Hemoglobin* 11.3 gm/dL (12.0-16.0); Immature Granulocytes Abs Auto 0.01 K/uL (0.00-0.30); Immature Granulocytes Pct Auto 0.1 %; Lymphocytes Percent Auto 8.8 % (20-44); Mean Corpuscular HGB Conc 33 gm/dL (32-36); Mean Corpuscular Hemoglobin 30 pg (26-34); Mean Corpuscular Volume 92 fL (80-100); Monocytes Percent Auto 7.4 % (0.0-11.0); Neutrophils Percent Auto 82.8 % (42.0-72.0); Platelet Count* 169 K/uL (140-440); RDW Coefficient of Variation % 13.5 % (11.5-15.5); Red Blood Count 3.75 m/uL (4.00-5.20); White Blood Count* 7.13 K/uL (4.50-11.00)
[2024-08-31 07:35] LABS: Anion Gap 3 mEq/L (7-15); Blood Urea Nitrogen* 18 mg/dL (7-30); Calcium* 8.7 mg/dL (8.4-10.6); Carbon Dioxide* 28 mmol/L (20-32); Glucose* 108 mg/dL (60-115)
[2024-08-31 07:47] LABS: Slide Review Reflex No
[2024-08-31] MEDS: IPRAT-ALBUT 0.5-2.5 MG/3 ML NEB 1 NEB IH (08:00)
--- NOTE | 2024-08-31 08:21 | P.DS_ITS ---
DS: Providers Provider Date Seen: 08/31/24 Date of admission: 08/28/24 01:43 Primary care physician: Ольга Gamble DO Admitting Clinician: Rubin Hoff MD Consults: PT, OT, Orthopedic Surgery Attending Physician on discharge: Rosaura Harper MD Date of Discharge: 08/31/24 DS: Diagnosis Discharge Diagnosis (1) Elevated troponin: Status: Acute Problem details: - 08/28/24: patient had an acute episode of nausea and lightheadedness. Troponin 0.15, reassuring EKG, given ASA for symptoms - troponin trended downward with resolution of symptoms, telemetry followed and reassuring - reviewed with Dr. Greco of Cardiology on 08/28, no acute interventions required - TTE 08/28/24: Final Impressions: 1. Technically limited exam. 2. Normal LV size, borderline wall thickness, estimated EF of 70 - 75%. 3. RV size is not well visualized, function appears normal. 4. No significant valve disease detected. (2) Injury of wrist, left: Status: Acute Problem details: - Left wrist sprain. DOI: 08/27/24 - notably had scaphoid fracture of L wrist in 2019 (3) Fracture, patella: Status: Acute Problem details: - closed treatment of a closed, acute, nondisplaced, transverse, comminuted, intra-articular right patellar fracture. DOI: 08/27/24 - therapies followed during stay, recommend TCU placement (4) Hypertension: Status: Acute Problem details: - well controlled on HCTZ and Metoprolol as an outpatient - holding HCTZ during stay given lower BPs DS: Summary Hospital Course Hospital Course: Georgette was admitted to the hospital on 08/27 after a mechanical fall while walking to her car after playing bingo. She sustained a R patellar fracture and L wrist injury, placed in a L wrist brace and R knee immobilizer during stay. Orthopedic Surgery consulted during stay, their team recommended nonoperative management for the patellar fracture. Therapies followed during stay, TCU stay recommended. On hospital day one, she had an acute episode of nausea and lightheadedness during therapy. Workup: reassuring EKG, elevated troponin (peaked at 0.15), reassuring TTE. Symptoms resolved and troponin trended downward after episode. Comorbidities: Emphysema: remained stable, continued home Advair and Nebs Essential HTN: held HCTZ for lower BPs during stay and will hold on discharge with PCP f/u, continued Metoprolol Patient medically appropriate for TCU discharge on 08/31. Status at Discharge Functional status at discharge: uses cane/walker Time Spent with Patient Time attestation: Total time spent providing and/or coordinating discharge services: Exam Narrative: Exam Narrative: GEN: Alert and oriented, sitting comfortably in bedside chair HEENT: EOMIs bilaterally, no scleral icterus CV: RRR, No concerning murmurs, rubs, or gallops R: Air movement adequate, lungs clear throughout Ext: No edema of extremities, wearing right knee immobilizer + left wrist brace. Left fingers have normal range of motion and capillary refill Skin: Left cheek has bruising from fall, left hand also has bruising, stable. no other concerning skin lesions or findings on exposed skin Neuro: No focal deficits Psych: Appropriate Const: Vital Signs, click to edit/add: Vital Signs - 24 hr 08/30/24 11:00 08/30/24 14:30 08/30/24 14:30 Temperature 97.6 F 97.6 F Pulse Rate Pulse Rate [Pulse Oximeter] 93 96 96 Respiratory Rate 18 18 18 Blood Pressure [Ri ght Arm] 109/58 L 122/65 Pulse Oximetry 93 93 Oxygen Delivery Me thod Room Air Room Air 08/30/24 15:00 08/30/24 19:42 08/30/24 22:38 Temperature 98.2 F Pulse Rate 100 73 Pulse Rate [Pulse Oximeter] 84 Respiratory Rate 18 Blood Pressure [Ri ght Arm] 127/73 Pulse Oximetry 94 Oxygen Delivery Me thod Room Air 08/30/24 23:00 08/30/24 23:09 08/31/24 03:34 Temperature 98.4 F 97.4 F L Pulse Rate Pulse Rate [Pulse Oximeter] 73 73 81 Respiratory Rate 18 18 18 Blood Pressure [Ri ght Arm] 117/62 151/81 H Pulse Oximetry 93 95 Oxygen Delivery Me thod Room Air Room Air 08/31/24 07:00 08/31/24 07:00 08/31/24 07:00 Temperature 97 F L Pulse Rate 67 Pulse Rate [Pulse Oximeter] 92 92 Respiratory Rate 20 20 Blood Pressure [Ri ght Arm] 150/84 H Pulse Oximetry 92 Oxygen Delivery Me thod Room Air DS: Data Data Completed and Pending Labs on day of discharge: Labs from last 24 hours 08/31/24 06:12 WBC 7.13 RBC 3.75 L Hgb 11.3 L Hct 34.6 MCV 92 MCH 30 MCHC 33 RDW Coeff of Virgil 13.5 Plt Count 169 Neut % (Auto) 82.8 H Lymph % (Auto) 8.8 L [place] % (Auto) 7.4 Eos % (Auto) 0.8 Baso % (Auto) 0.1 Neut # (Auto) 5.90 Lymph # (Auto) 0.60 L [place] # (Auto) 0.50 Eos # (Auto) 0.06 Baso # (Auto) 0.01 Abs Immat Gran (auto) 0.01 Imm/Tot Granulo (auto) 0.1 Sodium 137 Potassium 3.9 Chloride 106 Carbon Dioxide 28 Anion Gap 3 L BUN 18 Creatinine 0.8 Estimated Creat Clear 43.63 Estimated GFR 74 Glucose 108 Calcium 8.7 Discharge Plan Discharge Disposition: [facility] Date of Admission: 08/28/24 01:43 Attending Provider on Discharge: Rosaura Harper Consulting Providers: Spencer Piper; Afshan Pereira; Lev Sousa; Lilliana Nguyen; Karri Briggs; Fransico Velarde; Yasir Forte Primary Care Provider: Ольга Gamble Condition: Stable Anticipated Discharge Date/Time: 08/31/24 08:06 Discharge Medications: New acetaminophen 500 mg Tablet 1,000 mg PO TID Qty: 30 0RF Continued metoprolol succinate 50 mg tablet extended release 24 hr 50 mg PO DAILY montelukast 10 mg tablet 10 mg PO HS albuterol sulfate 90 mcg/actuation HFA aerosol inhaler 2 puff inhalation QID PRN ipratropium-albuterol 0.5 mg-3 mg(2.5 mg base)/3 mL solution for nebulization 3 ml inhalation QID PRN lorazepam 0.5 mg tablet 0.5 mg PO Q6H PRN loperamide [Imodium A-D] 2 mg capsule 2 mg PO Q6H PRN fluticasone propion-salmeterol 500-50 mcg/dose blister with device 1 inh inhalation BID Discontinued hydrochlorothiazide 25 mg tablet 25 mg PO DAILY acetaminophen 500 mg tablet 500 - 1,000 mg PO TID PRN Discharge Orders: Discharge Order (Routine); Ordered 08/31/24 Ordered By: Rosaura Harper Additional Instructions: We are HOLDING your Hydrochlorothiazide on discharge, as your blood pressure has been on the low side during hospital stay; this can be restarted if your BP goes up. After rehab, see Dr. Gamble for a check in, she will see how your BP looks and let you know if you need to do any followup with the Orthopedic team. Wear knee immobilizer and use cane/walker for assistance in ambulating. Use wrist splint also as needed for discomfort. Activity Level: No strenuous activity Activity Detail: per therapy Activity Restrictions: limited ROM of R knee (patellar fracture), see PT notes Discharge Diet: Regular Follow Up Appointments: Ольга Gamble DO [Primary Care Provider] - Forms: [facility] Info Instructions Admit to: SNF Discharge Potential: Good Length of Stay: <30 days Can use facility standing orders?: Yes Code Status: Full Code TEDs: Bilateral Knee Rehab Potential: Good Therapy: Physical Therapy and Occupational Therapy Therapy Orders: Evaluate and Treat Oxygen: No Urinary Catheter: No Glucose Checks: n/a Next INR: n/a Orders are good >30 days: Yes Signature: Rosaura Harper MD
[2024-08-31] MEDS: METOPROLOL SUCCINATE (XL) 50 MG TAB PO (08:58)
[2024-08-31] MEDS: ACETAMINOPHEN 500 MG TABLET 1000 MG PO (08:58)
--- NOTE | 2024-08-31 09:52 | PC.NURSE ---
Have attempted to call nurse to nurse report twice and have left a message regarding this. Called around 8:30 and then 9:27
--- NOTE | 2024-08-31 17:10 | PC.NURSE ---
Returned call to [facility] regarding patient. Phone call went to message box and voicemail left with return phone call information.
== END 2024-08-31 11:21 | DRG 563 ==
LOC: ED 23:06 → MEDSURG 08-28 00:34
PROVIDERS: Family Medicine; Admitting Provider Internal Medicine; Emergency Provider Emergency Medicine Emergency Medical Services; PCP Family Medicine; Visit Provider Internal Medicine
DX: S82.044A Nondisplaced comminuted fracture of right patella, initial encounter for closed fracture (principal); S63.502A Unspecified sprain of left wrist, initial encounter; S00.81XA Abrasion of other part of head, initial encounter; J43.1 Panlobular emphysema; I10 Essential (primary) hypertension; Y92.480 Sidewalk as the place of occurrence of the external cause; W10.1XXA Fall (on)(from) sidewalk curb, initial encounter; I49.9 Cardiac arrhythmia, unspecified; R79.89 Other specified abnormal findings of blood chemistry
CPT/HCPCS: 36415; 71045; 72125; 73110; 73560; 80048; 80053; 82803; 84484; 85025; 93306; 94761; 97110; 97116; 97162; 97165; 97530; 97535; 99284; 99285; A9270; J1171; J1885; J2405

== ENCOUNTER 2024-12-14 13:45 | Outpatient (RCR) | payer MEDICARE, OTHER, SELFPAY | END 2025-03-06 11:49 | disposition home or self-care (01) | PROVIDERS: PCP Family Medicine; Visit Provider Nurse Practitioner Adult Health | DX: S63.502A Unspecified sprain of left wrist, initial encounter (principal); S82.001A Unspecified fracture of right patella, initial encounter for closed fracture; Z51.89 Encounter for other specified aftercare | CPT/HCPCS: 97110; 97116; 97161 ==

== ENCOUNTER 2025-03-22 09:11 | Day surgery (SDC) | payer MEDICARE, OTHER, SELFPAY ==
[2025-03-22] VITALS (25 sets, daily range): BP systolic 94–161; BP diastolic 56–100; PULSE 52–66; RESP 12–20; TEMP 36.1–37.3; O2SAT 89–98; BMI 25.4
[2025-03-22] MEDS: ACETAMINOPHEN 500 MG TABLET 1000 MG PO ×3 (09:19→22:33)
--- NOTE | 2025-03-22 09:44 | W.PM.H&PU ---
History & Physical Update History & Physical Update H&P Reviewed and patient assessed: No changes noted
[2025-03-22] MEDS: LACTATED RINGERS 1000 ML 1,000 ML 100 ML IV ×2 (10:10→12:07)
[2025-03-22] MEDS: SODIUM CHLORIDE 0.9 % (FLUSH) 10 ML SYRINGE IVF (10:19)
[2025-03-22] MEDS: ALBUTEROL SULFATE 2.5 MG/3 ML VIAL.NEB NEB ×2 (10:25→20:59)
[2025-03-22] MEDS: MIDAZOLAM HCL 1 MG/ML inj IVP (10:27)
[2025-03-22] MEDS: fentaNYL 100 MCG/2 ML inj IVP (10:27)
--- NOTE | 2025-03-22 10:37 | SUR.PREOP ---
TIME?OUT:? 1025, left knee PT/RN/MDA?VERIFICATION?OF?SURGICAL?SITE,?PROCEDURE,?AND?CONSENT OBTAINED?PRIOR?TO?INVASIVE?PROCEDURE.
--- NOTE | 2025-03-22 10:44 | W.PM.NB ---
Nerve Block Nerve Block Time Seen by Provider: 10:36 Date Seen: 03/22/25 Type of block requested by surgeon for post-operative analgesia: adductor canal Side: left Time out performed: Yes Verification of patient name: Yes Verification of date of : Yes Site marking: site marked Name of person performing procedure: Shoaib Continuous monitoring Was continuous monitoring of O2 sat, B/P, director business systems, recorded every 15 minutes?: Yes Procedure Checklist: sterile prep, needles and gloves Ultrasound guided. Images saved: Yes Medications given in 5ml increments after negative aspiration: Marcaine %: 0.25 mL: 15 Needle gauge: 20 Precedex (mcg): 25 Patient tolerated procedure well: Yes Block Charges Block Charge (with Pro Fee): Femoral Nerve Use of Ultrasound Machine for Block: Yes- US Guidance/pain block
--- NOTE | 2025-03-22 10:45 | P.ANES_ITS ---
Anesthesia Charges Start Date/Time Anesthesia Start Date: 03/22/25 Anesthesia Start Time: 10:55 Stop Date/Time Anesthesia Stop Date: 03/22/25 Anesthesia Stop Time: 13:15 Summary Extremes of Age - Over 70 or under 1: MDA Coding CPT Codes CPT Codes: ANESTH KNEE ARTHROPLASTY - 99643 ([id number]) P3 - PATIENT W/SEVERE SYS DISEASE, QK - APPLICATION COORDINATOR 2-4 CNCRNT ANES PROC, QX - RETREAD MOLD OPERATOR SVC W/ MD MED DIRECTION Additional Codes: Summary - Extremes of Age - Over 70 or under 1: MDA ([id number])
--- NOTE | 2025-03-22 10:45 | W.PM.NB ---
Nerve Block Nerve Block Time Seen by Provider: 10:36 Date Seen: 03/22/25 Type of block requested by surgeon for post-operative analgesia: geniculars Side: left Time out performed: Yes Verification of patient name: Yes Verification of date of : Yes Site marking: site marked Name of person performing procedure: Shoaib Continuous monitoring Was continuous monitoring of O2 sat, B/P, front desk monitor, recorded every 15 minutes?: Yes Procedure Checklist: sterile prep, needles and gloves Ultrasound guided. Images saved: Yes Medications given in 5ml increments after negative aspiration: Marcaine %: 0.25 mL: 9 Needle gauge: 25 Patient tolerated procedure well: Yes Block Charges Block Charge (with Pro Fee): Genicular Nerve Block
--- NOTE | 2025-03-22 10:45 | W.ANESCHARGE ---
Anesthesia Charges Start Date/Time Anesthesia Start Date: 03/22/25 Anesthesia Start Time: 10:55 Stop Date/Time Anesthesia Stop Date: 03/22/25 Anesthesia Stop Time: 13:15 Summary Extremes of Age - Over 70 or under 1: MDA Coding CPT Codes CPT Codes: ANESTH KNEE ARTHROPLASTY - 63395 ([id number]) P3 - PATIENT W/SEVERE SYS DISEASE, QK - WATERPROOF COATING MACHINE TENDER 2-4 CNCRNT ANES PROC, QX - WOOLEN SUITING SHRINKER SVC W/ MD MED DIRECTION Additional Codes: Summary - Extremes of Age - Over 70 or under 1: MDA ([id number])
--- NOTE | 2025-03-22 11:10 | CRLHL7_ITS ---
For Patients: As a result of the Century Cures Act, medical imaging exams and procedure reports are released immediately into your electronic medical record. You may view this report before your referring provider. If you have questions, please contact your health care provider. Indication: Cough, hx of kidney cancer Technique: 2 views left knee Findings/Impression: Hardware from a left total knee arthroplasty is in satisfactory position. Bone alignment is normal. No sign of acute fracture. Postop changes are within normal limits. Dictated by Javier Bass MD @ 03/22/2025 2:51:50 PM (Electronically Signed)
[2025-03-22] MEDS: CEFAZOLIN 1 GM inj IVP (11:16)
[2025-03-22] MEDS: TRANEXAMIC ACID 100 MG/ML INJ 1000 MG IV (11:16)
--- NOTE | 2025-03-22 12:21 | PM.ORPRC ---
Procedure Note Date of procedure: 03/22/25 Procedure: PREOPERATIVE DIAGNOSIS: 1. Left knee osteoarthritis, primary, severe POSTOPERATIVE DIAGNOSIS: 1. Left knee osteoarthritis, primary, severe PROCEDURE: 1. Left total knee arthroplasty - subvastus SURGEON: Spencer Piper MD. CUP TRIMMING MACHINE OPERATOR: Yasir Forte PA-C - Of note, a skilled career services assistant was critical for this case to aid in patient positioning, tissue retraction, limb manipulation/positioning, and closure. ANESTHESIA: Spinal anesthetic EBL: 50ml IMPLANTS: DePuy J&J all cemented TKA - Attune PS femur size 7 Size 5 tibia 5 poly spacer 35 mm patella TOURNIQUET: 90 min at 300 torr COMPLICATIONS: None evident INDICATIONS: The patient is a pleasant 79-year-old female who has experienced severe left knee pain and difficulty bearing weight. Workup included x-rays which revealed severe osteoarthrosis in the knee. Given the deformity, the dysfunction, and the pain, as well as the failure of nonoperative management, recommendation was made for surgery. FINDINGS: Soft cancellous bone throughout. Full-thickness chondral loss all 3 compartments. Degenerative meniscus pathology medial greater than lateral. Moderate effusion upon entering the joint. DESCRIPTION OF PROCEDURE: Following a thorough discussion of risks, benefits, and alternatives consent was obtained and the left knee was marked. The patient was brought to the operating room and placed supine on the operating table. Induction of anesthesia was undertaken. 1 g IV Ancef and 1 g tranexamic acid was administered within 1 hr of incision preoperatively. Proper time-out was performed identifying proper patient, site, procedure. The operative extremity was prepped and draped in the appropriate sterile fashion using ChloraPrep after the patient was positioned supine with all bony prominences well padded. A longitudinal, anterior, midline skin incision was made starting approximately 3cm proximal to the superior pole of the patella and advanced distal to the tibial tubercle. A subvastus approach was utilized. A medial subperiosteal sleeve was created with knife, lechuga elevator and curved osteotome. The retropatellar fatpad was resected and the synovium in the suprapatellar pouch excised to visualize the anterior femoral cortex. Femoral preparation was performed via an intramedullary guide. Step drill allowed access into the femoral canal. The distal cutting guide was placed with 5? of valgus and 10 mm cut on the distal femur. Femur was sized using a anterior referencing guide in 3? of external rotation. This found have a best fit with the sizing noted above. The 4 in 1 cutting block was then placed, and the distal femur shaped accordingly. The box cut was then created and the trial implant inserted to confirm appropriate fit. We turned our attention to the proximal tibia. Extramedullary guide was utilized for cutting with the goal of being 90 degree cut from the mechanical axis of the tibia in the varus/valgus plane utilizing tibial crest as the primary alignment. Initially a 4 mm resection was performed from the medial tibial plateau. An additional 2mm did require resection to achieve appropriate balance. Ultimately, balancing was achieved in both flexion and extension in both varus and valgus. The knee was able to achieve full extension as well comfortably. The patella was initially measured and found have a thickness of 21 mm. It was resected back to approximately 14 mm. It was sized to be a best fit with as noted above. This was drilled, trial placed. All trials were placed and found to have an excellent stability and balance. At this stage, trial implants were removed, the knee was thoroughly irrigated with normal saline, and the cement was mixed. After irrigation, the knee was thoroughly dried, and cement placed, with the real tibial and femoral implants placed along with the patella. Trial poly spacer was placed and confirmed to have excellent range of motion and full extension, and the real poly spacer opened and inserted. All extra cement was removed, and a 3 min Betadine soak performed. Finally, a final irrigation round with normal saline was performed. Closure performed with 0 PDS and #0 Stratafix for the quad tendon/retinaculum. 2-0 Vicryl/Stratafix for the subcutaneous and 4-0 Monocryl for subcuticular closure. Dressings were applied and the patient was awoken from anesthesia after the tourniquet deflated and transferred the PACU in stable condition. A skilled career services assistant was critical for this case to aid in patient positioning, tissue retraction, bone exposure, limb manipulation/positioning, patient safety, and closure. PLAN: 1. Weight bear as tolerated operative extremity. 2. 23 hr perioperative antibiotics. 3. Ice. 4. PT/OT consults for ambulation assistance/mobility education. 5. Social work consult for discharge planning. 6. DVT prophylaxis with at SCDs and aspirin twice daily.
--- NOTE | 2025-03-22 13:20 | P.ANES_ITS ---
Anesthesia Charges Start Date/Time Anesthesia Start Date: 03/22/25 Anesthesia Start Time: 10:55 Stop Date/Time Anesthesia Stop Date: 03/22/25 Anesthesia Stop Time: 13:15 Summary Extremes of Age - Over 70 or under 1: AERONAUTICAL TEST ENGINEER Coding CPT Codes CPT Codes: ANESTH KNEE ARTHROPLASTY - 00168 ([id number]) P3 - PATIENT W/SEVERE SYS DISEASE, QK - CHINESE TEACHER 2-4 CNCRNT ANES PROC, QX - AERONAUTICAL TEST ENGINEER SVC W/ MD MED DIRECTION Additional Codes: Summary - Extremes of Age - Over 70 or under 1: AERONAUTICAL TEST ENGINEER ([id number])
--- NOTE | 2025-03-22 13:20 | W.ANESCHARGE ---
Anesthesia Charges Start Date/Time Anesthesia Start Date: 03/22/25 Anesthesia Start Time: 10:55 Stop Date/Time Anesthesia Stop Date: 03/22/25 Anesthesia Stop Time: 13:15 Summary Extremes of Age - Over 70 or under 1: ELECTROTYPE MOLDER Coding CPT Codes CPT Codes: ANESTH KNEE ARTHROPLASTY - 61823 ([id number]) P3 - PATIENT W/SEVERE SYS DISEASE, QK - HUMAN RESOURCE MANAGEMENT INSTRUCTOR 2-4 CNCRNT ANES PROC, QX - ELECTROTYPE MOLDER SVC W/ MD MED DIRECTION Additional Codes: Summary - Extremes of Age - Over 70 or under 1: ELECTROTYPE MOLDER ([id number])
--- NOTE | 2025-03-22 14:46 | PM.IMCN1 ---
Date of Consult Patient: Rima Patient Consult date: 03/22/25 Requesting Physician: Orthopedics Primary Care Provider: Ольга Gamble, DO Consult Narrative Reason for consult: Medical management of comorbidities Narrative: Georgette Kaminski is a 79 year old female who presented to the hospital today for an elective L TKA with Dr. Piper of Orthopedic Surgery. There were no surgical or anesthetic complications noted during procedure. Patient's H&P reviewed, PCP is Dr. Gamble at [facility]. Past medical history significant for: osteoarthritis, mild anxiety, emphysema (non-oxygen dependent, on Advair, prn nebs and daily Montelukast), essential HTN. History of blood clots: No Postoperative plan: Home with [id number] Review of Systems Status of ROS: Reports: 10 or more systems reviewed and unremarkable except as noted in History and below [facility] Medical History (Updated 03/22/25 @ 17:14 by Rosaura Harper MD) Panlobular emphysema ?J43.1 - Panlobular emphysema (ICD-10) Essential hypertension ?I10 - Essential (primary) hypertension (ICD-10) Osteoarthritis of left knee ?M17.12 - Unilateral primary osteoarthritis, left knee (ICD-10) Anxiety ?F41.9 - Anxiety disorder, unspecified (ICD-10) Pseudogout of right knee ?M11.261 - Other chondrocalcinosis, right knee (ICD-10) Osteoarthritis of right knee ?M17.11 - Unilateral primary osteoarthritis, right knee (ICD-10) Tear of medial meniscus of left knee ?S83.242A - Other tear of medial meniscus, current injury, left knee, initial encounter (ICD-10) Fracture, patella ?S82.009A - Unspecified fracture of unspecified patella, initial encounter for closed fracture (ICD-10) Left wrist sprain ?S63.502A - Unspecified sprain of left wrist, initial encounter (ICD-10) Degenerative tear of meniscus of left knee ?M23.307 - Other meniscus derangements, unspecified meniscus, left knee (ICD-10) Unruptured synovial cyst of left popliteal space ?M71.22 - Synovial cyst of popliteal space [[place]], left knee (ICD-10) Cardiac arrhythmia ?I49.9 - Cardiac arrhythmia, unspecified (ICD-10) Emphysema lung ?J43.9 - Emphysema, unspecified (ICD-10) Arthritis of carpometacarpal (CMC) joint of left thumb ?M18.12 - Unilateral primary osteoarthritis of first carpometacarpal joint, left hand (ICD-10) Back injury ?S39.92XA - Unspecified injury of lower back, initial encounter (ICD-10) Arthritis ?M19.90 - Unspecified osteoarthritis, unspecified site (ICD-10) IBS (irritable bowel syndrome) ?K58.9 - Irritable bowel syndrome without diarrhea (ICD-10) Gastritis ?K29.70 - Gastritis, unspecified, without bleeding (ICD-10) Colitis ?K52.9 - Noninfective gastroenteritis and colitis, unspecified (ICD-10) Hypertension ?I10 - Essential (primary) hypertension (ICD-10) Heart palpitations ?R00.2 - Palpitations (ICD-10) Left carpal navicular fracture ?S62.002A - Unspecified fracture of navicular [scaphoid] bone of left wrist, initial encounter for closed fracture (ICD-10) Gastroenteritis and colitis, viral ?A08.4 - Viral intestinal infection, unspecified (ICD-10) Unstable angina ?I20.0 - Unstable angina (ICD-10) Bursitis ?M71.9 - Bursopathy, unspecified (ICD-10) Surgical History (Updated 03/22/25 @ 16:52 by Rosaura Harper MD) Status post left knee replacement ?Z96.652 - Presence of left artificial knee joint (ICD-10) 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) ?Z96.641 - Presence of right artificial hip joint (ICD-10) History of colon resection ?Z90.49 - Acquired absence of other specified parts of digestive tract (ICD-10) S/P right rotator cuff repair (01/02/10) ?Z98.890 - Other specified postprocedural states (ICD-10) History of back surgery ?Z98.890 - Other specified postprocedural states (ICD-10) History of total left hip replacement (03/10/07) ?Z96.642 - Presence of left artificial hip joint (ICD-10) History of cardiac radiofrequency ablation (~2009) ?Z98.890 - Other specified postprocedural states (ICD-10) Family History Mother Asthma CHF (congestive heart failure) Brother Asthma Father Myocardial infarction Sister Colitis Social History What is your current living situation?: I presently have a place to live Problems where you live: no known problems Problems where you live details: no known problems In the past 12 months, utilities in danger of being shut off: no In past 12 months, lack of transportation kept you from medical appts, meetings, work, or getting things needed for daily living: no In the past 12 mos, have been you worried that your food would run out before you had money to buy more?: never true In the past 12 mos, the food you bought just didn't last and you didn't have money to buy more?: never true Highest level of school completed/degree received: 11th grade Smoking Status: Former smoker What tobacco products do you use: cigarettes Smoking quit date/years: >15 years ago Do you use any of these nicotine containing products: None Second hand tobacco smoke exposure: No How often do you have a drink containing alcohol: never AUDIT-C Alcohol total score: 0 Non-prescribed substance use: denies use Caffeine: No How often does anyone, including family, friends and others, physically hurt you: never How often does anyone, including family, friends and others, insult or talk down to you: never How often does anyone, including family, friends and others, threaten you with harm: never How often does anyone, including family, friends and others, scream or curse at you: never service: No Meds Home Medications and Allergies Home Medications ?Medication ?Instructions ?Recorded ?Confirmed ?Type albuterol sulfate 90 mcg/actuation 2 puff inhalation QID PRN 06/10/22 03/22/25 History aerosol inhaler ipratropium 0.5 mg-albuterol 3 mg 3 ml inhalation QID PRN 06/10/22 03/22/25 History (2.5 mg base)/3 mL nebulization soln lorazepam 0.5 mg tablet 0.5 mg PO Q6H PRN 06/10/22 03/22/25 History metoprolol succinate 50 mg 50 mg PO DAILY 06/10/22 03/22/25 History tablet,extended release 24 hr montelukast 10 mg tablet 10 mg PO HS 06/10/22 03/22/25 History loperamide 2 mg capsule (Imodium 2 mg PO Q6H PRN 10/23/22 03/22/25 History A-D) fluticasone 500 mcg-salmeterol 50 1 inh inhalation BID 08/28/24 03/22/25 History mcg/dose blistr powdr for inhalation acetaminophen 500 mg tablet 1,000 mg (2 x 500 mg) PO TID #30 08/31/24 03/22/25 Rx tabs hydrochlorothiazide 25 mg tablet 25 mg PO DAILY 01/06/25 03/22/25 History Allergies Allergy/AdvReac Type Severity Reaction Status Date / Time [facility] Allergy Intermediate Vomiting Verified 03/22/25 09:23 codeine AdvReac Vomiting Verified 03/22/25 09:23 Exam Narrative: Exam Narrative: GEN: Alert and oriented, sitting up comfortably in bed HEENT: Normal external ears, EOMIs bilaterally, no scleral icterus CV: RRR, No concerning murmurs R: + bibasilar rhonchi, no wheezing or rales Ext: wwp, no concerning edema Skin: No concerning skin lesions or rashes on exposed skin Neuro: Nonfocal Psych: Appropriate Const: Vital Signs, click to edit/add: Vital Signs - 24 hr 03/22/25 09:55 03/22/25 10:30 03/22/25 10:35 Temperature 99.2 F Pulse Rate 64 63 57 L Respiratory Rate 20 20 20 Blood Pressure 140/77 H 161/70 H 133/73 Pulse Oximetry 94 94 96 Oxygen Delivery Me thod Room Air Nasal Cannula Nasal Cannula Oxygen Flow Rate 3 3 03/22/25 10:42 03/22/25 13:10 03/22/25 13:15 Temperature 97.4 F L Pulse Rate 57 L 56 L 56 L Respiratory Rate 20 12 12 Blood Pressure 132/73 111/61 119/56 L Pulse Oximetry 98 92 93 Oxygen Delivery Me thod Nasal Cannula Room Air Room Air Oxygen Flow Rate 3 03/22/25 13:20 03/22/25 13:25 03/22/25 13:30 Temperature 97.3 F L Pulse Rate 59 L 61 61 Respiratory Rate 12 12 14 Blood Pressure 151/100 H 149/91 H 148/90 H Pulse Oximetry 94 93 94 Oxygen Delivery Me thod Room Air Room Air Oxygen Flow Rate 03/22/25 13:35 03/22/25 13:40 03/22/25 13:45 Temperature 97.3 F L Pulse Rate 63 59 L 60 Respiratory Rate 14 12 12 Blood Pressure 142/91 H 145/82 H 147/83 H Pulse Oximetry 95 92 94 Oxygen Delivery Me thod Room Air Room Air Oxygen Flow Rate Assessment and Plan Assessment and plan (1) Status post left knee replacement: Problem comment: - 03/22/25, Dr. Piper Status: Acute (2) Panlobular emphysema: Problem comment: - on home Advair and nebulizers, Singulair Status: Acute (3) Anxiety: Problem comment: - mild, well managed as an outpatient Status: Acute (4) Essential hypertension: Problem comment: - on HCTZ and Metoprolol Status: Acute Plan - pain management and prophylaxis per orthopedic surgery team - continue home medications for comorbidities - anticipate routine postoperative course
--- NOTE | 2025-03-22 15:02 | PC.NURSE ---
Patient up to floor at 1350. Tolerating ice chips & water. Patient denies pain. CMS intact. Advanced diet to regular and patient tolerating.
[2025-03-22] MEDS: CEFAZOLIN 2 GM in 0.9 % SODIUM CHLORIDE Mini-bag 100 ML IVPB (17:26)
[2025-03-22] MEDS: LACTATED RINGERS 1000 ML 1,000 ML 75 ML IV (17:27)
[2025-03-22] MEDS: BUDESONIDE 0.5 MG/2ML NEB NEB (21:00)
[2025-03-22] MEDS: ASPIRIN 81 MG TABLET EC PO (21:00)
[2025-03-22] MEDS: SENNOSIDES 1 TAB TABLET 2 TAB PO (21:01)
[2025-03-22] MEDS: MONTELUKAST 10 MG TABLET PO (21:01)
--- NOTE | 2025-03-22 23:18 | PC.NURSE ---
[id number]: Pt. is AOX4. VSS. CMS intact. Dressing CDI. Pt. is pleasant and makes needs known. Declined prn pain medication. Pt. reported decrease in pain after Tylenol given. Pt. voided and ambulated X1 standby assist. Pt. consumes 100% of supper. Cold ice pack applied to surgical knee. Pt. is comfortable call light within reach.
[2025-03-23] MEDS: CEFAZOLIN 2 GM in 0.9 % SODIUM CHLORIDE Mini-bag 100 ML IVPB ×2 (00:35→08:19)
[2025-03-23 03:00] VITALS: BP 121/67; PULSE 67; RESP 16; TEMP 36.7; O2SAT 91
[2025-03-23] MEDS: ACETAMINOPHEN 500 MG TABLET 1000 MG PO (04:17)
--- NOTE | 2025-03-23 04:56 | PC.NURSE ---
Shift note: Patient is doing well ambulating with A1, walker and GB. She moves slow but able to maintain her balance with the walker. Patient made 3 trips to the [facility]. Pain level rated at 3 at rest and increase with activities. Patient preferred Tylenol to narcotic medications. She preferred medications cut into smaller pieces with applesauce. Vitally stable.
[2025-03-23 06:27] LABS: Basophils Absolute Auto 0.01 K/uL (0.00-0.30); Basophils Percent Auto 0.1 % (0.0-3.0); Hematocrit 30.9 % (33.0-51.0); Hemoglobin* 10.3 gm/dL (12.0-16.0); Immature Granulocytes Abs Auto 0.01 K/uL (0.00-0.30); Immature Granulocytes Pct Auto 0.1 %; Lymphocytes Percent Auto 11.8 % (20-44); Mean Corpuscular HGB Conc 33 gm/dL (32-36); Mean Corpuscular Hemoglobin 31 pg (26-34); Mean Corpuscular Volume 92 fL (80-100); Monocytes Percent Auto 7.9 % (0.0-11.0); Neutrophils Percent Auto 80.1 % (42.0-72.0); Platelet Count* 182 K/uL (140-440); RDW Coefficient of Variation % 13.2 % (11.5-15.5); Red Blood Count 3.37 m/uL (4.00-5.20); White Blood Count* 6.71 K/uL (4.50-11.00)
[2025-03-23 06:29] LABS: Slide Review Reflex No
[2025-03-23 06:35] LABS: Sodium* 135 mmol/L (135-149)
[2025-03-23 06:36] LABS: Potassium* 3.5 mmol/L (3.6-5.1)
[2025-03-23 06:38] LABS: Blood Urea Nitrogen* 18 mg/dL (7-30); Creatinine* 0.7 mg/dL (0.5-1.5); Est. Creatinine Clearance* 43.63; Estimated Glomerular Filt Rate 87 ml/min
[2025-03-23 07:50] VITALS: BP 126/87; PULSE 59; RESP 16; TEMP 36.8; O2SAT 93
[2025-03-23] MEDS: ASPIRIN 81 MG TABLET EC PO (08:19)
[2025-03-23] MEDS: SENNOSIDES 1 TAB TABLET 2 TAB PO (08:19)
[2025-03-23] MEDS: METOPROLOL SUCCINATE (XL) 50 MG TAB PO (08:19)
--- NOTE | 2025-03-23 10:04 | PM.ORPN ---
Subjective Subjective Date Seen: 03/23/25 Principal diagnosis: Status postop day 1 left total knee arthroplasty Interval history: Patient reports doing okay. No acute events over night. Reports having a small BM. Pain managed with scheduled and PRN medications, ice. She has not had any oral narcotics she prefers to stay with acetaminophen a possible. DVT prophylaxis: 81 mg aspirin by mouth twice daily, SCDs, walking. Denies fevers, chills, aches, N/V, CP, SOB/MCCAIN, or lightheadedness. Patient has a history of diarrhea ever since part of her colon was resected. She takes Imodium as needed. Ortho Exam Narrative Exam Narrative: -Patient appears comfortable; no apparent acute distress -Alert and oriented times 3 -Operative knee moderately swollen; soft tissues supple; no ecchymosis; no erythematous streaking Warmth appropriate -Surgical dressing clean, dry, intact; no drainage -Bilateral calfs soft; no significant swelling, edema, tenderness, erythema, discoloration, warmth, or palpable cords -2+ DP/PT pulses, intact dermatomes and myotomes distally (5/5 strength) Const Vital Signs, click to edit/add: Vital Signs - 24 hr 03/22/25 10:30 03/22/25 10:35 03/22/25 10:42 Temperature Pulse Rate 63 57 L 57 L Pulse Rate [Left Pulse Oximeter] Respiratory Rate 20 20 20 Blood Pressure 161/70 H 133/73 132/73 Blood Pressure [Left Arm] Pulse Oximetry 94 96 98 Oxygen Delivery Method Nasal Cannula Nasal Cannula Nasal Cannula Oxygen Flow Rate 3 3 3 03/22/25 13:10 03/22/25 13:15 03/22/25 13:20 Temperature 97.4 F L Pulse Rate 56 L 56 L 59 L Pulse Rate [Left Pulse Oximeter] Respiratory Rate 12 12 12 Blood Pressure 111/61 119/56 L 151/100 H Blood Pressure [Left Arm] Pulse Oximetry 92 93 94 Oxygen Delivery Method Room Air Room Air Oxygen Flow Rate 03/22/25 13:25 03/22/25 13:30 03/22/25 13:35 Temperature 97.3 F L Pulse Rate 61 61 63 Pulse Rate [Left Pulse Oximeter] Respiratory Rate 12 14 14 Blood Pressure 149/91 H 148/90 H 142/91 H Blood Pressure [Left Arm] Pulse Oximetry 93 94 95 Oxygen Delivery Method Room Air Room Air Oxygen Flow Rate 03/22/25 13:40 03/22/25 13:45 03/22/25 13:50 Temperature 97.3 F L 97 F L Pulse Rate 59 L 60 53 L Pulse Rate [Left Pulse Oximeter] Respiratory Rate 12 12 16 Blood Pressure 145/82 H 147/83 H 142/84 H Blood Pressure [Left Arm] Pulse Oximetry 92 94 90 Oxygen Delivery Method Room Air Room Air Room Air Oxygen Flow Rate 03/22/25 14:00 03/22/25 14:15 03/22/25 14:30 Temperature 97.3 F L 97.3 F L 97.1 F L Pulse Rate 54 L 56 L 52 L Pulse Rate [Left Pulse Oximeter] Respiratory Rate 16 16 16 Blood Pressure 140/80 H 136/74 136/88 Blood Pressure [Left Arm] Pulse Oximetry 91 92 93 Oxygen Delivery Method Room Air Room Air Room Air Oxygen Flow Rate 3 03/22/25 14:45 03/22/25 15:15 03/22/25 15:45 Temperature 97.6 F 97.8 F 98 F Pulse Rate 54 L 59 L 61 Pulse Rate [Left Pulse Oximeter] Respiratory Rate 16 16 16 Blood Pressure 127/82 136/71 94/68 Blood Pressure [Left Arm] Pulse Oximetry 90 94 93 Oxygen Delivery Method Room Air Room Air Oxygen Flow Rate 3 03/22/25 16:00 03/22/25 16:00 03/22/25 16:36 Temperature 98 F Pulse Rate 59 L Pulse Rate [Left Pulse Oximeter] Respiratory Rate 16 Blood Pressure 117/70 Blood Pressure [Left Arm] Pulse Oximetry 92 95 92 Oxygen Delivery Method Room Air Room Air Oxygen Flow Rate 0 03/22/25 17:00 03/22/25 18:00 03/22/25 19:00 Temperature 98 F 97.5 F L 98.2 F Pulse Rate 56 L 61 56 L Pulse Rate [Left Pulse Oximeter] Respiratory Rate 16 16 16 Blood Pressure 130/80 110/59 L 112/73 Blood Pressure [Left Arm] Pulse Oximetry 94 92 92 Oxygen Delivery Method Room Air Room Air Oxygen Flow Rate 03/22/25 23:00 03/22/25 23:00 03/22/25 23:00 Temperature Pulse Rate Pulse Rate [Left Pulse Oximeter] Respiratory Rate 16 16 Blood Pressure Blood Pressure [Left Arm] Pulse Oximetry 89 89 Oxygen Delivery Method Room Air Oxygen Flow Rate 0 03/22/25 23:00 03/23/25 03:00 03/23/25 07:50 Temperature 97.5 F L 98.1 F Pulse Rate Pulse Rate [Left Pulse Oximeter] 66 67 Respiratory Rate 16 16 Blood Pressure Blood Pressure [Left Arm] 116/69 121/67 Pulse Oximetry 89 91 93 Oxygen Delivery Method Room Air Room Air Oxygen Flow Rate 0 0 03/23/25 07:50 03/23/25 07:50 Temperature 98.3 F Pulse Rate Pulse Rate [Left Pulse Oximeter] 59 L Respiratory Rate 16 16 Blood Pressure Blood Pressure [Left Arm] 126/87 Pulse Oximetry 93 93 Oxygen Delivery Method Room Air Room Air Oxygen Flow Rate Assessment and Plan Assessment and plan (1) Status post left knee replacement: Problem details: - 03/22/25, Dr. Piper Status: Acute (2) Panlobular emphysema: Problem details: - on home Advair and nebulizers, Singulair Status: Acute (3) Anxiety: Problem details: - mild, well managed as an outpatient Status: Acute (4) Essential hypertension: Problem details: - on HCTZ and Metoprolol Status: Acute Plan - Complete 23 hour perioperative antibiotics. - PT/OT consult for education and assistance. - Social work consult for discharge planning - Prescribed analgesics as needed - DVT prophylaxis: 81 mg aspirin by mouth twice daily, walking, and SCDs - With patient's history of diarrhea, informed her that narcotic medication if taken would likely cause some constipation. We also prescribed senna. However, taking oxycodone may improve her chronic diarrhea and she may not need loperamide. In fact, I would be cautious with taking loperamide at this time to prevent significant constipation. Take senna as needed. - Anticipation is for discharge to home with family/friends today 03/23/2025 if the patient remains medically stable, pain is controlled, and they are safe with mobilization.
== END 2025-03-23 11:17 | disposition home or self-care (01) ==
LOC: OR 09:13 → MEDSURG 09:14
PROVIDERS: PCP Family Medicine; Visit Provider Orthopaedic Surgery Sports Medicine
PROC: (CPT 27447; principal; 2025-03-22 10:30)
DX: M17.12 Unilateral primary osteoarthritis, left knee (principal); G89.18 Other acute postprocedural pain; I10 Essential (primary) hypertension; J43.1 Panlobular emphysema; F41.9 Anxiety disorder, unspecified
CPT/HCPCS: 27447; 01402; 36415; 64447; 64454; 73560; 76942; 82565; 84132; 84295; 84520; 85025; 94640; 97110; 97116; 97161; 97165; 97530; 97535; 99100; A9270; C1776; J0665; J0690; J1100; J2250; J2405; J2704; J3010; J7120; J7626

== ENCOUNTER 2025-05-23 13:45 | Outpatient (RCR) | payer MEDICARE, OTHER, SELFPAY | END 2025-08-11 08:39 | disposition home or self-care (01) | PROVIDERS: PCP Family Medicine; Visit Provider Orthopaedic Surgery Sports Medicine | DX: Z48.89 Encounter for other specified surgical aftercare (principal); Z96.652 Presence of left artificial knee joint; M25.562 Pain in left knee; Z51.89 Encounter for other specified aftercare | CPT/HCPCS: 97110; 97112; 97116; 97140; 97161 ==